=== PATIENT | female | born 1930 | race Caucasian/White ===

== ENCOUNTER 2016-06-26 11:50 | Inpatient (IN) | payer MEDICAID, MEDICARE, OTHER ==
[2016-06-26 12:00] VITALS: BMI 22.4
--- NOTE | 2016-06-26 12:42 | ED PDOC ---
Lower Extremity Pain/Injury Time Seen by Provider: 06/26/16 12:10 Chief Complaint (Nursing): Trauma Chief Complaint (Provider): Trauma History Per: Patient History/Exam Limitations: no limitations Onset/Duration Of Symptoms: Hrs Current Symptoms Are (Timing): Still Present Additional Complaint(s): 85 y/o female who presents to the emergency department via EMS with a complaint of bilateral hip and leg pain after falling on both knee while walking at home to drink her medications prior to arrival. Patient states her knees "gave out." Denies chest pain, shortness of breath, dizziness, weakness, back pain, or head injury. PMD: Dr. Analilia Awad MD Past Medical History Reviewed: Historical Data, Nursing Documentation, Vital Signs Vital Signs: Last Vital Signs Temp 98.7 F 06/26/16 11:59 Pulse 61 06/26/16 11:59 Resp 16 06/26/16 11:59 BP Pulse Ox 100 06/26/16 11:59 - Medical History PMH: Arthritis, Asthma, CHF, Deep Vein Thrombosis (rt leg), HTN, Hypercholesterolemia, Osteoporosis Denies: Chronic Kidney Disease - Surgical History Surgical History: Appendectomy, Cholecystectomy - Family History Family History: States: Unknown Family Hx - Social History Current smoker - smoking cessation education provided: No Alcohol: None Drugs: Denies - Immunization History Hx Tetanus Toxoid Vaccination: No Hx Influenza Vaccination: No Hx Pneumococcal Vaccination: No - Home Medications Home Medications: Ambulatory Orders Medication Instructions Recorded Bisoprolol [Zebeta] 5 mg PO DAILY #0 tab 06/13/15 Famotidine [Pepcid] 1 tab PO DAILY #0 tab 06/13/15 Rosuvastatin Calcium [Crestor] 10 mg PO HS #0 tab 06/13/15 Aspirin [Aspirin Chewable] 81 mg PO DAILY 03/08/16 Cozaar 25 mg PO DAILY 03/08/16 Furosemide [Lasix] 20 mg PO DAILY 03/08/16 cloNIDine [Catapres] 0.1 mg PO DAILY 03/08/16 Clonidine HCl [Kapvay] 0.1 mg PO WM 06/26/16 Escitalopram [Lexapro] 10 mg PO DAILY 06/26/16 Ferrous Sulfate [Feosol] 325 mg PO BID 06/26/16 Levetiracetam [Roweepra] 500 mg PO BID 06/26/16 Losartan [Cozaar] 25 mg PO DAILY 06/26/16 Oxybutynin [Oxybutynin Chloride] 5 mg PO BID 06/26/16 Rosuvastatin Calcium [Crestor] 10 mg PO DAILY 06/26/16 - Allergies Allergies/Adverse Reactions: Allergies Allergy/AdvReac Type Severity Reaction Status Date / Time No Known Allergies Allergy Verified 06/12/15 10:31 Review of Systems ROS Statement: Except As Marked, All Systems Reviewed And Found Negative Constitutional: Negative for: Weakness, Other (head injury) Cardiovascular: Negative for: Chest Pain Respiratory: Negative for: Shortness of Breath Musculoskeletal: Positive for: Leg Pain (Bilateral), Other (Bilateral hip pain) . Negative for: Back Pain Neurological: Negative for: Dizziness Physical Exam - Reviewed Nursing Documentation Reviewed: Yes Vital Signs Reviewed: Yes - Physical Exam Appears: Positive for: Non-toxic, No Acute Distress Head Exam: Positive for: ATRAUMATIC, NORMAL INSPECTION, NORMOCEPHALIC Skin: Positive for: Normal Color, Warm, Dry Neck: Positive for: Normal, Painless ROM, Supple Cardiovascular/Chest: Positive for: Regular Rate, Rhythm Respiratory: Positive for: Normal Breath Sounds Pulses-Dorsalis Pedis (L): 2+ Pulses-Dorsalis Pedis (R): 2+ Back: Positive for: Normal Inspection. Negative for: L CVA Tenderness, R CVA Tenderness Extremity: Positive for: Tenderness (Diffusely to the thigh, knee, and hips bilaterally. Ecchymosis the left knee and greater to the left anterior knee. ), Swelling (Mild right knee swelling), Other (2+ dorsalis pulses). Negative for: Normal ROM (limited ROM of motion bilaterally; passively and actively), Pedal Edema Neurologic/Psych: Positive for: Alert, Oriented - ECG O2 Sat by Pulse Oximetry: 100 (RA) Pulse Ox Interpretation: Normal - Radiology X-Ray: Read By Radiologist X-Ray Interpretation: Other (knee and femur: no acute) - Progress ED Course And Treament: 1457: Stable. AAOx3. Dr. Guillen wants pt. to get CT for further eval. Dr. Augustine to fu on imaging. Medical Decision Making Medical Decision Making: Time: 12:10 Initial impression: Leg and hip pain Initial plan: --Electrocardiogram Stat --EKG-ED (EDNURTX) Stat --Knee 4 or more Views BI (RAD) --Morphine 2 mg IM --Femur AP Lat BI --Hip BI with pelvis (RAD) --Revaluation Scribe Attestation: Documented by Effie Walker, acting as a scribe for Tremayne Bee MD. Provider Scribe Attestation: All medical record entries made by the Scribe were at my direction and personally dictated by me. I have reviewed the chart and agree that the record accurately reflects my personal performance of the history, physical exam, medical decision making, and the department course for this patient. I have also personally directed, reviewed, and agree with the discharge instructions and disposition. Disposition - Clinical Impression Clinical Impression: Pain of lower extremity - Patient ED Disposition Is Patient to be Admitted: Transfer of Care Counseled Patient/Family Regarding: Studies Performed, Diagnosis - Disposition Disposition: Transfer of Care Disposition Time: 14:58 Condition: STABLE Patient Signed Over To: Anjelica Augustine
--- NOTE | 2016-06-26 14:04 | RAD ---
Bilateral knees History: Fall. Comparison: None. Technique: Two views of both knees. Findings: No definite fracture. Degenerative changes left greater than right. Medial compartment joint space narrowing involving the left knee. Impression: No definite fracture. Degenerative changes left greater than right.
--- NOTE | 2016-06-26 14:06 | RAD ---
Bilateral femur History: Fall. Findings: No acute fracture. Impression: No definite fracture. Possible old fracture deformity of the right pubic ramus.
--- NOTE | 2016-06-26 15:04 | ED PDOC ---
- Laboratory Results Result Diagrams: 06/26/16 16:00 06/26/16 16:00 - ECG O2 Sat by Pulse Oximetry: 100 (RA) Pulse Ox Interpretation: Normal Medical Decision Making Medical Decision Making: Time: 15:00 --Patient is pending hip/pelvis x-ray, reassessment, and final disposition. Accession No. : [id number] Patient Name / ID : APRIL BEARD / [id number] Exam Date : 06/26/2016 13:18:23 ( Approved ) Study Comment : Sex / Age : F / 85Y Creator : Adriana Guillen MD Dictator : Adriana Guillen MD Racking Technician : Online Content Developer : Adriana Guillen MD Approver2 : Report Date : 06/26/2016 15:03:59 My Comment : Pelvis and both hips History: Fall. Comparison: CT from 01/23/2014. Findings: No apparent fracture. Old fracture of the right pubic ramus. Sclerotic density involving the left ischemic again seen. Vascular calcifications. Moderate distal colonic/rectal stool burden. Impression: No apparent fracture on the given images. Please note that this is a suboptimally positioned radiograph, subtle fractures can be missed under such suboptimal positioning. If clinical suspicion of fracture persists, CT of the pelvis should be obtained. Discussed with Dr. Bee at approximately 1:30 p.m. on 06/26/2016. Accession No. : [id number] Patient Name / ID : APRIL BEARD / [id number] Exam Date : 06/26/2016 13:22:22 ( Approved ) Study Comment : Sex / Age : F / 85Y Creator : Adriana Guillen MD Dictator : Adriana Guillen MD Racking Technician : Online Content Developer : Adriana Guillen MD Approver2 : Report Date : 06/26/2016 14:04:26 My Comment : Bilateral femur History: Fall. Findings: No acute fracture. Impression: No definite fracture. Possible old fracture deformity of the right pubic ramus. Accession No. : [id number] Patient Name / ID : APRIL BEARD / [id number] Exam Date : 06/26/2016 13:26:27 ( Approved ) Study Comment : Sex / Age : 5Y Creator : Adriana Guillen MD Dictator : Adriana Guillen MD Racking Technician : Online Content Developer : Adriana Guillen MD Approver2 : Report Date : 06/26/2016 14:02:39 My Comment : Bilateral knees History: Fall. Comparison: None. Technique: Two views of both knees. Findings: No definite fracture. Degenerative changes left greater than right. Medial compartment joint space narrowing involving the left knee. Impression: No definite fracture. Degenerative changes left greater than right. Accession No. : [id number] Patient Name / ID : APRIL BEARD / [id number] Exam Date : 06/26/2016 15:14:48 ( Approved ) Study Comment : Sex / Age : Creator : Adriana Guillen MD Dictator : Adriana Guillen MD Racking Technician : Online Content Developer : Adriana Guillen MD Approver2 : Report Date : 06/26/2016 16:06:07 My Comment : CT pelvis without intravenous contrast History: Fall. Evaluate for fracture. Comparison: Comparison made to CT from 01/23/2014. Technique: CT of the pelvis was obtained. Coronal and sagittal reformatted images were obtained. This CT was performed using one or more of the following dose reduction techniques: Automated exposure control, adjustment of the mA and/ or KV according to patient size, and/or use of iterative reconstruction technique. Radiation dose: 434.68 mGy-cm Findings: No displaced fracture identified. Old fracture involving the right pubic ramus again seen. Sclerotic density in the left HTN, stable. Extensive degenerative changes of lower lumbar spine. Mild anterolisthesis of L5 over S1. Intervertebral disc space narrowing and vacuum disc phenomenon at L5-S1. Extensive vascular calcifications. Visualized bowel possible fecal impaction and rectal wall thickening. Segmental thickening of the visualized portion of the ascending colon also noted. The bladder appears distended. No bladder calculus. Extensive atherosclerotic calcification involving both common femoral arteries left greater than right. Mild soft tissue stranding in the posterior aspect. Impression: No acute fracture identified. Short segment wall thickening (incompletely imaged) involving the ascending colon. Possible proctitis with fecal impaction. Time: 16:00 --Patient was reevaluated and still has persistent bilateral hip pain. Limited ability to even flex at the hip secondary to the pain. She is in too much pain to ambulate. Patient's findings were discussed with her and the family. Time: 16:50 --Spoke to Dr. Awad and patient is going to be admitted to [facility] for intractable hip pain and inability to ambulate. Accession No. : [id number] Patient Name / ID : APRIL BEARD / [id number] Exam Date : 06/26/2016 16:43:48 ( Approved ) Study Comment : Sex / Age : F / 85Y Creator : Adriana Guillen MD Dictator : Adriana Guillen MD Racking Technician : Online Content Developer : Adriana Guillen MD Approver2 : Report Date : 06/26/2016 16:48:43 My Comment : HISTORY: weakness COMPARISON: 05/28/2015 FINDINGS: LUNGS: Opacity inferior to the right hilum has remained essentially unchanged. PLEURA: No significant pleural effusion identified, no pneumothorax apparent.Biapical pleural parenchymal thickening noted. CARDIOVASCULAR: Mildly enlarged heart. OSSEOUS STRUCTURES: The osseous structures demonstrate degenerative changes. VISUALIZED UPPER ABDOMEN: Upper abdomen is suboptimally evaluated. OTHER FINDINGS: None. IMPRESSION: Right infrahilar opacity has remained essentially unchanged since 05/28/2015. Disposition Counseled Patient/Family Regarding: Studies Performed, Diagnosis - Clinical Impression Clinical Impression: Intractable pain, Contusion of knee, Inability to ambulate due to multiple joints - POA Present On Arrival: Falls Or Trauma - Disposition Disposition: Admitted as In-Patient Disposition Time: 16:00 Condition: SERIOUS
--- NOTE | 2016-06-26 16:07 | CT ---
CT pelvis without intravenous contrast History: Fall. Evaluate for fracture. Comparison: Comparison made to CT from 01/23/2014. Technique: CT of the pelvis was obtained. Coronal and sagittal reformatted images were obtained. This CT was performed using one or more of the following dose reduction techniques: Automated exposure control, adjustment of the mA and/or KV according to patient size, and/or use of iterative reconstruction technique. Radiation dose: 434.68 mGy-cm Findings: No displaced fracture identified. Old fracture involving the right pubic ramus again seen. Sclerotic density in the left HTN, stable. Extensive degenerative changes of lower lumbar spine. Mild anterolisthesis of L5 over S1. Intervertebral disc space narrowing and vacuum disc phenomenon at L5-S1. Extensive vascular calcifications. Visualized bowel possible fecal impaction and rectal wall thickening. Segmental thickening of the visualized portion of the ascending colon also noted. The bladder appears distended. No bladder calculus. Extensive atherosclerotic calcification involving both common femoral arteries left greater than right. Mild soft tissue stranding in the posterior aspect. Impression: No acute fracture identified. Short segment wall thickening (incompletely imaged) involving the ascending colon. Possible proctitis with fecal impaction.
[2016-06-26 16:44] LABS: BASO % 0.3 % (0.0-2.0); EOS % 0.1 % (0.0-4.0); LYMPH # 1.1 K/uL (1.0-4.3); MEAN CELL VOLUME 92.3 fl (81.0-99.0); MEAN CORPUSCULAR HEMOGLOBIN 31.3 pg (27.0-31.0); MEAN CORPUSCULAR HGB CONC 33.9 g/dL (33.0-37.0); MEAN PLATELET VOLUME 9.7 fl (7.2-11.7); MONO # 0.6 K/uL (0.0-0.8); MONO % 8.5 % (0.0-10.0); NEUT # 5.9 K/uL (1.8-7.0); NEUT % 77.1 % (50.0-75.0); NRBC % 0.1 % (0.0-0.0); RED CELL DISTRIBUTION WIDTH 13.4 % (11.5-14.5); WHITE BLOOD COUNT 7.6 K/uL (4.8-10.8)
--- NOTE | 2016-06-26 16:50 | RAD ---
HISTORY: weakness COMPARISON: 05/28/2015 FINDINGS: LUNGS: Opacity inferior to the right hilum has remained essentially unchanged. PLEURA: No significant pleural effusion identified, no pneumothorax apparent.Biapical pleural parenchymal thickening noted. CARDIOVASCULAR: Mildly enlarged heart. OSSEOUS STRUCTURES: The osseous structures demonstrate degenerative changes. VISUALIZED UPPER ABDOMEN: Upper abdomen is suboptimally evaluated. OTHER FINDINGS: None. IMPRESSION: Right infrahilar opacity has remained essentially unchanged since 05/28/2015.
[2016-06-26 17:01] LABS: ALB/GLOB RATIO 1.4 (1.0-2.1); BILIRUBIN,TOTAL 1.6 mg/dl (0.2-1.3); CALCIUM 11.9 mg/dL (8.4-10.2); MAGNESIUM 2.1 MG/DL (1.6-2.3); PHOSPHOROUS 1.1 mg/dl (2.5-4.5); POTASSIUM 4.5 MMOL/L (3.6-5.0)
[2016-06-26] MEDS: Sodium Chloride 0.45% 1,000 ML IV SCH (18:30)
[2016-06-27 07:18] LABS: HEMATOCRIT 39.7 % (34.0-47.0); MEAN CELL VOLUME 92.8 fl (81.0-99.0); MEAN CORPUSCULAR HEMOGLOBIN 31.2 pg (27.0-31.0); MEAN CORPUSCULAR HGB CONC 33.6 g/dL (33.0-37.0); RED CELL DISTRIBUTION WIDTH 13.4 % (11.5-14.5); WHITE BLOOD COUNT 5.3 K/uL (4.8-10.8)
[2016-06-27 07:30] LABS: ALB/GLOB RATIO 1.3 (1.0-2.1); BILIRUBIN,TOTAL 1.4 mg/dl (0.2-1.3); CALCIUM 10.9 mg/dL (8.4-10.2); POTASSIUM 3.5 MMOL/L (3.6-5.0); TOTAL PROTEIN 6.1 G/DL (6.3-8.2)
[2016-06-27] MEDS: Sodium Chloride 0.45% 1,000 ML IV SCH (08:11)
[2016-06-27] MEDS ORDERED: CLONIDINE HCL 0.1 MG PO SCH (09:00)
[2016-06-27 11:43] LABS: RBC URINE < 1 /hpf (0-3); URINE BILIRUBIN NEGATIVE (NEGATIVE); URINE BLOOD NEGATIVE (NEGATIVE); URINE COLOR YELLOW (YELLOW); URINE GLUCOSE (UA) NEG (Normal); URINE KETONE TRACE mg/dL (NEGATIVE); URINE LEUKOCYTE ESTERASE NEG Leu/uL (Negative); URINE PROTEIN NEGATIVE (NEGATIVE); URINE UROBILINOGEN 0.2-1.0 mg/dL (0.2-1.0); WBC URINE < 1 /hpf (0-5)
[2016-06-27] MEDS ORDERED: Potassium Chloride 10 mEq ER Tab PO ONE (17:00)
[2016-06-27] MEDS ORDERED: Potassium Chloride 20 mEq ER Tab PO ONE (17:03)
--- NOTE | 2016-06-27 20:24 | HP ---
HISTORY OF PRESENT ILLNESS: This is an 85-year-old female with history of multiple medical problems including hypertension, degenerative spine disease, was brought to Emergency Room after a fa ll. The patient stated that she fell on her way to the kitchen in the house and she alerted the ____ _ that called the police and the ambulance. The patient was brought to Emergency Room for evaluation where she was found to have contusion of both of her thighs and knees. The patient was not able to ambulate. Subsequently, the patient was admitted for further management. The patient does not recal l any dizziness or palpitations or any loss of consciousness associated with this fall. The patient had previous fall also last year. REVIEW OF SYSTEMS: Other review of systems is negative. ALLERGIES: No known allergy. HOME MEDICATIONS: Include ferrous sulfate 325 mg twice a day, Lexapro 10 mg daily, Keppra 500 mg twi ce a day, Crestor 10 mg daily, clonidine 0.1 mg Monday and Monday and Monday, furosemide 20 mg as needed, Pepcid 20 mg daily, Cozaar 25 mg daily, bisoprolol 5 mg daily. SOCIAL HISTORY: No history of smoking, ETOH or substance abuse. FAMILY HISTORY: Noncontributory. PHYSICAL EXAMINATION: GENERAL: The patient is in bed, is in mild distress due to pain in both lower extremities. VITAL SIGNS: Blood pressure 110/50, temperature 97.7, respiratory rate 20, and pulse 75. HEENT: Pupils equal, reactive to light. Normal-appearing mucosa of the conjunctivae, oropharyngeal and nasal membrane mucosa. NECK: Supple, no JVD, no carotid bruit, no lymph node, no thyromegaly. CHEST AND LUNGS: Bilateral symmetrical expansion. Good air exchange. No rales. No rhonchi. CARDIOVASCULAR: PMI not localized. S1, S2. No additional sounds. ABDOMEN: Normoactive bowel sounds, no tenderness, no organomegaly, no masses. EXTREMITIES: No cyanosis, no clubbing, no edema, but there is decreased range of motion of both knee s and hips. CENTRAL NERVOUS SYSTEM: Alert, awake, oriented x 2. No neurological deficits could be appreciated. ASSESSMENT: 1. Fall with severe contusion of both thighs and knees. 2. Hypertension. 3. 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 4. Anxiety/depression, currently on Lexapro. PLAN: We will start physical therapy, pain management and will order a CAT scan of the pelvis to rul e out any fracture. [facility] Yamel Awad MD cc: 167 TT: 06/27/2016 20:23:48 mn
[2016-06-28] MEDS ORDERED: CLONIDINE HCL 0.1 MG PO SCH (09:00)
[2016-06-28] MEDS ORDERED: Enoxaparin 40 mg Syringe SC SCH (09:00)
--- NOTE | 2016-06-28 14:42 | RAD ---
PROCEDURE: Radiographs of the Left Shoulder HISTORY: s/p fall, c/o pain COMPARISON: No prior. FINDINGS: BONES: There is no acute displaced fracture or bone destruction. Bone alignment is normal. There is diffuse bone demineralization. JOINTS: There is moderate degenerative acromioclavicular joint. There is mild degenerative osteoarthrosis in the glenohumeral joint SOFT TISSUES: Normal. OTHER FINDINGS: None. IMPRESSION: No acute displaced fracture or dislocation
--- NOTE | 2016-06-28 22:32 | PN ---
DATE: 06/28/2016 SUBJECTIVE: The patient is seen today 06/28/2016. She is still having pain in both lower extremitie s left shoulder with inability to abduct the left shoulder. PHYSICAL EXAMINATION: VITAL SIGNS: Blood pressure is 151/64, temperature 98.8, respiratory rate 20, pulse is 90. HEENT: Pupils equal, reactive to light. Normal-appearing mucosa of the conjunctivae, oropharyngeal and nasal membrane mucosa. NECK: Supple, no JVD, no carotid bruit, no lymph node, no thyromegaly. CHEST AND LUNGS: Bilateral symmetrical expansion, good air exchange, no rales, no rhonchi. CARDIOVASCULAR: PMI not localized. S1, S2. ABDOMEN: Normoactive bowel sounds, no tenderness, no organomegaly, no masses. EXTREMITIES: . CENTRAL NERVOUS SYSTEM: Alert, awake, oriented x 2, moves all extremities equally. ASSESSMENT: 1. Fall which is slightly mechanical with bilateral thigh pain, as well as left shoulder pain with d ecrease range of motion. 2. Hypertension. 3. Osteoarthritis. 4. Dementia. PLAN: Continue physical therapy and pain management, DVT prophylaxis. Analilia Awad MD cc: 167 TT: 06/28/2016 22:32:02 Confirmation # [id number] Dictation # [id number] mn
[2016-06-29 02:15] VITALS: RESP 18
[2016-06-29 16:30] VITALS: BP 123/63; PULSE 57; TEMP 98.5; O2SAT 97
--- NOTE | 2016-06-30 10:24 | DS ---
REASON FOR ADMISSION: This is an 85-year-old female with history of multiple medical proble ms after a fall, with multiple contusions on the thighs and the chest wall. COURSE OF HOSPITALIZATION: The patient was admitted to medical floor and she was started on pain man agement and physical therapy. The patient did not have any neurological deficit to support any acute neurological event. The patient was responding well, and pain was controlled and she was able to wa lk with assistance, and the patient was discharged to subacute rehabilitation at [facility]. FINAL DIAGNOSES: 1. Fall with multiple contusions in the chest wall and both lower extremities. 2. Hypertension. 3. Dementia. 4. Degenerative spine disease. Analilia Awad MD cc: 167 TT: 06/30/2016 10:23:46 jn
== END 2016-06-29 19:45 | DRG 605 ==
LOC: H.ER 11:50 → H.ERHOLD 16:35 → H.MEDSURG1 18:13
PROVIDERS: ADMIT Internal Medicine; ATTEND Internal Medicine
DX: S20.219A Contusion of unspecified front wall of thorax, initial encounter (principal); I11.0 Hypertensive heart disease with heart failure; F03.90 Unspecified dementia, unspecified severity, without behavioral disturbance, psychotic disturbance, mood disturbance, and anxiety; I50.9 Heart failure, unspecified; W18.30XA Fall on same level, unspecified, initial encounter; F32.9 Major depressive disorder, single episode, unspecified; F41.9 Anxiety disorder, unspecified; S70.11XA Contusion of right thigh, initial encounter; S70.12XA Contusion of left thigh, initial encounter; S80.02XA Contusion of left knee, initial encounter; S80.01XA Contusion of right knee, initial encounter; Y93.9 Activity, unspecified; Y92.009 Unspecified place in unspecified non-institutional (private) residence as the place of occurrence of the external cause; M25.512 Pain in left shoulder; M19.90 Unspecified osteoarthritis, unspecified site; J45.909 Unspecified asthma, uncomplicated; E78.00 Pure hypercholesterolemia, unspecified; M81.0 Age-related osteoporosis without current pathological fracture; Z86.718 Personal history of other venous thrombosis and embolism

== ENCOUNTER 2016-11-08 12:43 | Inpatient (IN) | payer MEDICARE, MEDICAID ==
[2016-11-08 12:47] VITALS: O2SAT 98
--- NOTE | 2016-11-08 13:00 | ED PDOC ---
HPI: General Adult Time Seen by Provider: 11/08/16 12:59 Chief Complaint (Nursing): Weakness/Neurological Deficit Chief Complaint (Provider): weakness, agitated History Per: Patient, EMS, Other (caretakers) Additional Complaint(s): 85-year-old female presents to emergency department for evaluation of generalized weakness, confusion, agitiation and altered mental status that started this morning as per caretakers. Caretakers state patient woke up today agitated and confused. No associated fever, chills, nausea, vomiting. Upon arrival patient is asking for her grandson who lives in [facility]. Patient denies any chest pain, shortness of breath or dyspnea on exertion upon arrival. She denies any headache but has mild dizziness with no vision changes. Past Medical History Reviewed: Historical Data Vital Signs: Last Vital Signs Temp 97 F L 11/08/16 12:44 Pulse 67 11/08/16 13:19 Resp 18 11/08/16 13:19 BP 145/90 11/08/16 13:19 Pulse Ox 98 11/08/16 15:10 - Medical History PMH: Arthritis, Asthma, CHF, Deep Vein Thrombosis (rt leg), HTN, Hypercholesterolemia, Hyperlipidemia, Osteoporosis, Chronic Kidney Disease, Seizures - Surgical History Surgical History: Appendectomy, Cholecystectomy - Family History Family History: States: No Known Family Hx - Living Arrangements Living Arrangements: With Family - Social History Current smoker - smoking cessation education provided: No Alcohol: None Drugs: Denies - Home Medications Home Medications: Ambulatory Orders Medication Instructions Recorded Aspirin [Ecotrin] 81 mg PO DAILY 11/08/16 Bisoprolol [Zebeta] 2.5 mg PO DAILY 11/08/16 Cinacalcet [Sensipar] 60 mg PO DAILY 11/08/16 Escitalopram [Lexapro] 10 mg PO DAILY 11/08/16 Famotidine [Pepcid] 20 mg PO DAILY 11/08/16 Ferrous Sulfate [Ferosul] 325 mg PO BID 11/08/16 Losartan [Cozaar] 50 mg PO DAILY 11/08/16 Oxybutynin [Ditropan Tab] 5 mg PO DAILY 11/08/16 Rosuvastatin Calcium [Crestor] 10 mg PO DAILY 11/08/16 hydrALAZINE [Apresoline] 50 mg PO Q8H 11/08/16 levETIRAcetam [Keppra] 500 mg PO BID 11/08/16 - Allergies Allergies/Adverse Reactions: Allergies Allergy/AdvReac Type Severity Reaction Status Date / Time No Known Allergies Allergy Verified 10/12/16 14:46 Review of Systems ROS Statement: Except As Marked, All Systems Reviewed And Found Negative Constitutional: Positive for: Weakness. Negative for: Fever, Chills Cardiovascular: Negative for: Chest Pain Respiratory: Negative for: Shortness of Breath Gastrointestinal: Negative for: Nausea, Vomiting, Abdominal Pain Neurological: Positive for: Weakness, Confusion, Altered Mental Status. Negative for: Change in Speech, Seizures, Headache, Dizziness Physical Exam - Reviewed Nursing Documentation Reviewed: Yes Vital Signs Reviewed: Yes - Physical Exam Appears: Positive for: Well, Non-toxic, No Acute Distress Skin: Negative for: Rash Eye Exam: Positive for: Normal appearance, EOMI, PERRL Cardiovascular/Chest: Positive for: Regular Rate, Rhythm Respiratory: Positive for: Normal Breath Sounds Gastrointestinal/Abdominal: Positive for: Soft. Negative for: Tenderness, Distended, Guarding, Rebound Extremity: Positive for: Normal ROM. Negative for: Pedal Edema, Deformity Neurologic/Psych: Positive for: Alert, machine staker II-XII (grossly intact), Oriented, Mood/Affect (anxious, paranoid). Negative for: Motor/Sensory Deficits, Aphasia , Facial Droop - Laboratory Results Result Diagrams: 11/08/16 13:21 11/08/16 13:21 - ECG Interpretation Of ECG: NSR 71 bpm, LBBB unchanged from previous EKG, reviewed by PA and ED attending. O2 Sat by Pulse Oximetry: 98 Pulse Ox Interpretation: Normal - Other Rad portable chest X-Ray: Interpreted by Me, Viewed By Me X-Ray Interpretation: no acute finding, no acute interval change Head CT X-Ray: Read By Radiologist X-Ray Interpretation: see below Medical Decision Making Medical Decision Makin85 year old with generalized weakness and altered mental status. No acute neuro deficits noted upon arrival. Previous records reviewed. Patient has similar episode of AMS on 10/12/16 and was admitted at that time. Plan: CT head CXR EKG CBC CMP Trop UA IVF CT head: IMPRESSION: No acute intracranial abnormality. Mild chronic microangiopathic changes and mild age-related global parenchymal volume loss. Call placed to PMD Dr. Awad. He is very familiar with patient. Patient was admitted medically for similar symptoms 1 month ago at [facility] and had negative workup at that time. As per Dr. Awad, he would like patient to be evaluated for geropsychiatric admission. Case was discussed with crisis counselor, patient is medically stable for psychiatric evaluation at this time. 3:30 pm: As per crisis counselor and psychiatrist warehouse insulation worker, Dr. Blunt, patient does meet criteria for avi-psych admission. Patient agrees and signed herself in. Patient is medically stable for psychiatric admission. Disposition - Clinical Impression Clinical Impression: Dementia, Delusional disorder - Patient ED Disposition Is Patient to be Admitted: Yes - Disposition Disposition Time: 16:23 Condition: FAIR Forms: [employer] (Thai) - Pt Status Changed To: Hospital Disposition Of: Inpatient - Admit Certification Admit to Inpatient:: After my assessment, the patient will require hospitalization for at least two midnights. This is because of the severity of symptoms shown, intensity of services needed, and/or the medical risk in this patient being treated as an outpatient. - POA Present On Arrival: None Results - Lab Results Lab Results: 11/08/16 11/08/16 11/08/16 13:55 13:21 13:21 WBC 3.5 L RBC 4.36 Hgb 13.4 Hct 40.8 MCV 93.5 MCH 30.7 MCHC 32.9 L RDW 12.9 Plt Count 154 MPV 8.3 Neut % (Auto) 47.6 L Lymph % (Auto) 40.2 H Semin[place] % (Auto) 9.4 Eos % (Auto) 1.7 Baso % (Auto) 1.1 Neut # 1.7 L Lymph # 1.4 [place]in[place] # 0.3 Eos # 0.1 Baso # 0.0 Sodium 135 Potassium 4.3 Chloride 103 Carbon Dioxide 22 Anion Gap 15 BUN 18 H Creatinine 1.1 Est GFR ( Amer) 57 Est GFR (Non-Af Amer) 47 Random Glucose 96 Calcium 8.9 Total Bilirubin 0.7 AST 27 ALT 41 Alkaline Phosphatase 73 Troponin I 0.0120 Total Protein 6.3 Albumin 3.7 Globulin 2.6 Albumin/Globulin Ratio 1.4 Urine Color Straw Urine Clarity Clear Urine pH 7.0 Ur Specific Kent 1.006 Urine Protein Negative Urine Glucose (UA) Neg Urine Ketones Negative Urine Blood Negative Urine Nitrate Negative Urine Bilirubin Negative Urine Urobilinogen 0.2-1.0 Ur Leukocyte Esterase Neg Urine RBC (Auto) 1 Urine Microscopic WBC < 1 Ur Squamous Epith Cells < 1 Calcium Oxalate Crystal Rare Urine Bacteria Rare
[2016-11-08] MEDS ORDERED: Sodium Chloride 0.9% 1,000 ML IV STA (13:07)
[2016-11-08 13:49] LABS: ALB/GLOB RATIO 1.4 (1.0-2.1); ALBUMIN 3.7 g/dL (3.5-5.0); BASO % 1.1 % (0.0-2.0); CALCIUM 8.9 mg/dL (8.4-10.2); EOS # 0.1 K/uL (0.0-0.7); EOS % 1.7 % (0.0-4.0); HEMOGLOBIN 13.4 g/dL (12.0-16.0); LYMPH # 1.4 K/uL (1.0-4.3); LYMPH % 40.2 % (20.0-40.0); MEAN CELL VOLUME 93.5 fl (81.0-99.0); MEAN CORPUSCULAR HEMOGLOBIN 30.7 pg (27.0-31.0); MEAN CORPUSCULAR HGB CONC 32.9 g/dL (33.0-37.0); MEAN PLATELET VOLUME 8.3 fl (7.2-11.7); MONO # 0.3 K/uL (0.0-0.8); MONO % 9.4 % (0.0-10.0); NEUT # 1.7 K/uL (1.8-7.0); NEUT % 47.6 % (50.0-75.0); NRBC % 0.3 % (0.0-0.0); RBC 4.36 Mil/uL (3.80-5.20); RED CELL DISTRIBUTION WIDTH 12.9 % (11.5-14.5); WHITE BLOOD COUNT 3.5 K/uL (4.8-10.8)
--- NOTE | 2016-11-08 13:58 | CT ---
PROCEDURE: CT HEAD WITHOUT CONTRAST. HISTORY: AMS, weakness COMPARISON: None available. TECHNIQUE: Axial computed tomography images were obtained through the head/brain without intravenous contrast. Radiation dose: Total exam DLP = 892.09 MGy-cm. This CT exam was performed using one or more of the following dose reduction techniques: Automated exposure control, adjustment of the mA and/or kV according to patient size, and/or use of iterative reconstruction technique. FINDINGS: HEMORRHAGE: No intracranial hemorrhage. BRAIN: There are mild chronic microangiopathic changes. There is no mass, mass effect or abnormal extra-axial fluid collection. There are coarse atherosclerotic calcifications in the cavernous carotid arteries. VENTRICLES: There is mild age-related global parenchymal volume loss and proportionate enlargement of the ventricles and cortical sulci. CALVARIUM: The skull base and calvarium are normal. PARANASAL SINUSES: Predominantly clear. MASTOID AIR CELLS: Predominantly clear. OTHER FINDINGS: None. IMPRESSION: No acute intracranial abnormality. Mild chronic microangiopathic changes and mild age-related global parenchymal volume loss.
[2016-11-08 14:01] LABS: TROPONIN I 0.012 ng/mL (0.00-0.120)
[2016-11-08 14:22] LABS: SQUAMOUS EPITHIAL < 1 /hpf (0-5); URINE BACTERIA RARE (<OCC); URINE BILIRUBIN NEGATIVE (NEGATIVE); URINE BLOOD NEGATIVE (NEGATIVE); URINE CALCIUM OXALATE CRYSTALS RARE /hpf (<OCC); URINE CLARITY CLEAR (Clear); URINE COLOR STRAW (YELLOW); URINE GLUCOSE (UA) NEG (Normal); URINE LEUKOCYTE ESTERASE NEG Leu/uL (Negative); URINE NITRATE NEGATIVE (NEGATIVE); URINE PROTEIN NEGATIVE (NEGATIVE); URINE UROBILINOGEN 0.2-1.0 mg/dL (0.2-1.0)
--- NOTE | 2016-11-08 14:26 | RAD ---
HISTORY: clearance COMPARISON: 06/26/2016. FINDINGS: LUNGS: The lungs are clear. There is bibasilar subsegmental atelectasis. PLEURA: No significant pleural effusion identified, no pneumothorax apparent. CARDIOVASCULAR: The heart is normal in size. There is prominent central vasculature and mild pulmonary redistribution. OSSEOUS STRUCTURES: No significant abnormalities. VISUALIZED UPPER ABDOMEN: Normal. OTHER FINDINGS: There is chronic elevation of the right hemidiaphragm. IMPRESSION: No active pulmonary disease.
--- NOTE | 2016-11-08 15:50 | CARD ---
APPROVED REPORT EKG Measurement Heart [id number] <Conclusion> Sinus rhythm with marked sinus arrhythmia Left bundle branch block Abnormal ECG
[2016-11-08 18:16] VITALS: BMI 23.2
[2016-11-08] MEDS ORDERED: Alum-Mag Hydrox-Simethicone Susp (30 mL) PO PRN (18:17)
[2016-11-08] MEDS ORDERED: Magnesium Hydroxide Susp 30 ml UD PO PRN (18:17)
[2016-11-08] MEDS ORDERED: Bismuth Subsalicylate 262 mg/15 ml Sus (240 ml) PO PRN (18:17)
--- NOTE | 2016-11-08 19:23 | PCM.BM ---
<Bradley,Niurka - Last Filed: 11/09/16 08:35> - Diagnosis (1) Major depression Status: Acute Interventions: Medication management, Individual and group therapy, psychoeducation 11/09/16 08:36 <Vonnie Wells - Last Filed: 11/09/16 09:32> Treatment Plan Problems - Problems identified on initial assessmt Hopelessness/Helplessness Date Initiated: 11/08/16 Time Initiated: 18:00 Assessment reference: NA Status: Active Activity Intolerance Date Initiated: 11/08/16 Time Initiated: 18:00 Assessment reference: NA Status: Active Treatment assets and liabiliti Patient Assests: good support system, financial stabiity, cognitively intact Patient Liabilities: live alone, medical problems, language/speech - Milieu Protocol Maintain good personal hygiene: daily Encourage regular showers, every shift Remind patient to perform daily oral care, every shift Assist patient to perform ADL's Conduct patient checks and document Observation sheet: Q15 minutes Maintain personal safety: every shift Educate patient to report safety concerns to staff, every shift Monitor environment for contraband/sharps Medication safety: Monitor for expected outcome, potential side effects: every shift, Assess barriers to learning: every shift, Assess readiness for medication education: every shift <Hallie Landry - Last Filed: 11/09/16 10:55> Family Contact Family involvement: Famliy/SO not involved - Outside Agency [facility] - [employer] Services Care involvment: Information-sharing, Other Agency contact name: [facility] contact number: [phone] - Goals for Treatment Patient goals for treatment: "To get better." Discharge/Continuing Care - Education Needs Education Needs: Patient Medication, Patient Diagnosis/Disease Process, Patient Coping Skills, Patient Placement options, Patient Community resources, Patient Aftercare Safety Plan - Discharge Discharge Criteria: Tolerates medication w/o severe side effects, Normal sleep pattern, Ability to care for self, Reduction of target symptoms Discharge to:: Home, With Family, Other (Home Health Aide Services ([employer]) vs. [facility]) - Treatment Team Participation Patient/Family/SO Statement: 11/09/16 10:50 Pt seen and discussed in team meeting. Tx plan discussed. Pt's medications reviewed and pt not agreeable to medication adjustment/modification at this time. Pt reported she feels lonely at home and "just want to talk to people." Pt reported limited support system. [facility] discussed and pt refused. Pt reported she just wants to continue with [employer] services. Discussed with Family/SO: No (Limited family support) Was Patient/Family/SO present at Treatment Team Meeting: Yes
[2016-11-09 08:05] LABS: HEMOGLOBIN 13.2 g/dL (12.0-16.0); MEAN CELL VOLUME 94.3 fl (81.0-99.0); MEAN CORPUSCULAR HEMOGLOBIN 31.2 pg (27.0-31.0); MEAN CORPUSCULAR HGB CONC 33.1 g/dL (33.0-37.0); RBC 4.24 Mil/uL (3.80-5.20); WHITE BLOOD COUNT 3.8 K/uL (4.8-10.8)
[2016-11-09 08:25] LABS: ALB/GLOB RATIO 1.4 (1.0-2.1); ALBUMIN 3.3 g/dL (3.5-5.0); CALCIUM 8.6 mg/dL (8.4-10.2)
--- NOTE | 2016-11-09 08:35 | PCM.PSYCH ---
Initial Psychiatric Evaluation - Initial Psychiatric Evaluation Type of Admission: Voluntary Legal Status: Capacity Chief Complaint (in patient's own words): "I'm depressed." Patient's Reaction to Hospitalization: 85 y/o female referred by Dr. Awad for worsening depression, anxiety and changes in sleep/appetite. Collateral from curtain worker in ER: CW contacted patient 's granddaughter Emily Hubbard who stated that patient is lonely and her behavior had deteriorated since her son move to [facility] two years ago. Patient is accompanied by homemakers, Ms. Gavin and Edgar Heron. As per homemaker patient was recently hospitalized in the medical floor. Patient had been feeling very depressed. Pt. has an adopted grandaughter Emily who takes care of pt's medication and coordinates her services. PMH: Arthritis, DVT, hypertension, hyperlipidemia, head trauma s/p fall, seizure d/o Surgical History: Appendectomy, Hysterectomy, L knee PPHx: No prior psychiatric treatment or admission. Currently on Lexapro from her PMD. ALL: NKDA FHx: No known family h/o mental illness; Mother w/ HTN SHx: No drugs/etoh/cig. From [place]. 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 PCP: Dr. Awad Current Medications: Active Medications Generic Name Dose Route Start Last Admin Trade Name Freq PRN Reason Stop Dose Admin Acetaminophen 650 mg 11/08/16 18:17 Tylenol 325mg Tab PO Q4 PRN Pain, moderate (4-7) Al Hydrox/Mg Hydrox/Simethicone 30 ml 11/08/16 18:17 Maalox Plus 30 Ml PO Q4 PRN Dyspepsia Aspirin 81 mg 11/09/16 09:00 Ecotrin PO DAILY KRISTEN Atorvastatin Calcium 20 mg 11/09/16 09:00 Lipitor PO DAILY KRISTEN Bismuth Subsalicylate 524 mg 11/08/16 18:17 Pepto-Bismol PO Q4 PRN Diarrhea Bisoprolol Fumarate 2.5 mg 11/09/16 09:00 Zebeta PO DAILY KRISTEN Cinacalcet 60 mg 11/09/16 09:00 Sensipar PO DAILY KRISTEN Escitalopram Oxalate 10 mg 11/09/16 09:00 Lexapro PO DAILY KRISTEN Famotidine 20 mg 11/09/16 09:00 Pepcid PO DAILY KRISTEN Ferrous Sulfate 325 mg 11/09/16 09:00 Feosol PO BID [facility] Hydralazine HCl 50 mg 11/08/16 18:30 11/09/16 03:29 Apresoline PO 50 mg Q8H [facility] Administration Levetiracetam 500 mg 11/09/16 09:00 Keppra PO BID KRITSEN Lorazepam 0.5 mg 11/08/16 18:17 Ativan PO 11/22/16 18:18 HS PRN Insomnia Lorazepam 0.5 mg 11/08/16 18:17 Ativan PO 11/22/16 18:18 Q6 PRN Anixety/Agitation Losartan Potassium 50 mg 11/09/16 09:00 Cozaar PO DAILY [facility] Magnesium Hydroxide 30 ml 11/08/16 18:17 Milk Of Magnesia PO HS PRN Constipation Oxybutynin Chloride 5 mg 11/09/16 09:00 Ditropan Tab PO DAILY [facility] Past Psychiatric History - Past Psychiatric History Previous Treatment History: None Pertinent Medical Hx (Current Medical&Sleep Prob, Allergies): Allergies Allergy/AdvReac Type Severity Reaction Status Date / Time No Known Allergies Allergy Verified 10/12/16 14:46 Aspirin [Ecotrin] 81 mg PO DAILY 11/08/16 Bisoprolol [Zebeta] 2.5 mg PO DAILY 11/08/16 Cinacalcet [Sensipar] 60 mg PO DAILY 11/08/16 Escitalopram [Lexapro] 10 mg PO DAILY 11/08/16 Famotidine [Pepcid] 20 mg PO DAILY 11/08/16 Ferrous Sulfate [Ferosul] 325 mg PO BID 11/08/16 Losartan [Cozaar] 50 mg PO DAILY 11/08/16 Oxybutynin [Ditropan Tab] 5 mg PO DAILY 11/08/16 Rosuvastatin Calcium [Crestor] 10 mg PO DAILY 11/08/16 hydrALAZINE [Apresoline] 50 mg PO Q8H 11/08/16 levETIRAcetam [Keppra] 500 mg PO BID 11/08/16 Review of Systems - Psychiatric Psychiatric: Abnormal Sleep Pattern, Behavioral Changes, Change in Appetite, Depression Mental Status Examination - Personal Presentation Personal Presentation: Looks stated age - Affect Affect: Constricted - Motor Activity Motor Activity: Calm - Reliability in Providing Information Reliability in Providing Information: Fair - Speech Speech: Coherent - Mood Mood: Depressed - Formal Thought Process Formal Thought Process: No Impairment - Hallucinations/Delusions Additional comments: NO AH/VH/paranoia/delusions - Obsessions/Compulsions Obsessions: No Compulsions: No - Cognitive Functions Orientation: Person, Place, Situation, Time Sensorium: Alert Estimate of Intelligence: Average Judgement: Intact, as evidence by: Insight regarding need for hospitalization Memory: Recent intact, as evidence by: Ability to recall events of the day - Risk Risk: Diminished functioning - Strength & Assets Inventory Strength & Assets Inventory: Cooperative - Limitations Limitations: Living alone DSM 5 DX - DSM 5 DSM 5 Diagnosis: Major Depressive Disorder - Recommended/Plan of Treatment Treatment Recommendations and Plan of Treatment: MDD -Admit to geriatric psychiatry unit -Increase Lexapro to 15 mg PO Daily -Individual and group therapy -Medicine consult -Disposition planning Projected ELOS: 2-5 days Discharge Plan and Discharge Criteria: Discharge when psychiatrically stable - Smoking Cessation Smoking Cessation Initiated: No Reason for not providing: Not indicated
[2016-11-09 08:44] LABS: T4 8.3 ug/dl (5.5-11.0)
[2016-11-09 09:01] LABS: FERRITIN 91.5 ng/mL
[2016-11-09] MEDS: Cinacalcet 60 MG TAB PO SCH (09:22)
[2016-11-09 12:30] LABS: FOLATE 15.1 ng/mL
--- NOTE | 2016-11-10 03:55 | CON ---
DATE: 11/09/2016 ATTENDING PHYSICIAN: Analilia Awad MD LOCATION: The patient's room number 307, bed 1. REASON FOR THE CONSULTATION: Change in mental status. CHIEF COMPLAINT: The patient was brought in with history of generalized weakness, agitation, and confusion as per the traffic controller cable. From neurological point of view, I was called in to evaluate her for further management. HISTORY OF PRESENT ILLNESS: The patient is an 85-year-old right-handed female presenting with, as per the traffic controller cable, history of generalized weakness, confusion, agitation. At present, she denies any headache, visual changes or any speech problem, except her right knee pain. She denies any loss of consciousness, no involuntary movements. PAST MEDICAL HISTORY: Arthritis, asthma, CHF, deep vein thrombosis, hypertension, dyslipidemia, osteoporosis, chronic kidney disease and seizures. PERSONAL HISTORY: Denies smoking and alcohol use. PAST SURGICAL HISTORY: Appendectomy and cholecystectomy. MEDICATIONS: Aspirin, Zetia, Sensipar, Lexapro, Pepcid, Feosol, Cozaar, Ditropan, calcium, Apresoline, and Keppra. REVIEW OF SYSTEMS: A 12-point system had been reviewed. From neurologic point of view, neurological system shows change in mental status. PHYSICAL EXAMINATION: VITAL SIGNS: Blood pressure 122/57 with mean arterial pressure of 78, pulse rate 72 and regular, respiratory rate is 16, temperature 97.3 degrees Fahrenheit. NECK: Supple. No carotid bruit. HEART: Sounds regular with systolic murmur. EXTREMITIES: Stasis dermatitis with 1+ pitting edema. NEUROLOGICAL: MENTAL STATUS EXAMINATION: She is awake, alert and oriented to person and place. She does not know the year. She does not know the president name. She is able to spell her name in [place]. She follows one-step command with no problem; disturbances in right and left confusion. Naming intact, repetition is normal, comprehension is intact. No sign of hallucination. No sign of suicidal ideation. No sign of depression. MOTOR: On outstretched hand with eyes closed. Mild essential tremor. DEEP TENDON REFLEXES: Biceps, brachialis, and triceps 1+; both knees are absent; both ankles are absent; plantars are equivocal response. Her right leg is limited exam due to the right knee arthritis. DIAGNOSTIC WORKUP: CT of the brain, mild atrophy with small vessel disease without any acute pathology. BLOOD WORKUP: WBC 3.8, hemoglobin 13.2, hematocrit 39.9, platelet 153. Sodium 137, potassium 4.9, chloride 104, bicarbonate 25, GFR 52. Liver functions are normal. Triglyceride 60, cholesterol 135, HDL 63. B12 of 545, folate 15.1. TSH 3.36. Urinalysis normal. RPR nonreactive. CONCLUSION: 1. The patient has been presenting with episode of change in mental status, presenting with confusion, all related to her senile dementia of Alzheimer type versus vascular dementia or mixed type. 2. The current exam has also showed bilateral distal symmetric sensorimotor neuropathy. 3. History of seizures; however, she does not have seizures. However, she is on medication of Keppra that she continues at present. RECOMMENDATIONS: 1. Continue Keppra for now. 2. The patient can be benefited with cholinesterase inhibitors to improve as well as stabilize her mental status. 3. The patient should be benefited getting out of the bed and physical therapy. 4. Pain medicine appropriately given for right knee arthritis. Otherwise, no further intervention is needed from neurological point of view. Hunter Fletcher MD
[2016-11-10] MEDS: Cinacalcet 60 MG TAB PO SCH (08:55)
--- NOTE | 2016-11-10 09:37 | PCM.PYCHPN ---
Psychiatric Progress Note - Psychiatric Progress Note Patient seen today, length of contact: Patient evaluated, case discussed with team, chart reviewed, 35 min Patient Chief Complaint: "I'm okay." Problems Identified/Issues Discussed: Patient reports her mood is improving. She has bright affect and engages appropriately with staff. She was not agreeable to increasing the Lexapro, due to feeling that her current dosage is sufficient to treat her depression. + Improved appetite. Medication Change: Yes (Continue Lexapro 10 mg PO Daily) Medical Record Reviewed: Yes Mental Status Examination - Cognitive Function Orientation: Person, Place, Situation, Time Association: WNL - Mood Mood: Depressed - Affect Affect: Broad - Speech Speech: Appropriate - Formal Thought Process Formal Thought Process: No Impairment Psychotic Thoughts and Behaviors: NO AH/VH/paranoia/delusions - Suicidal Ideation Suicidal Ideation: No - Homicidal Ideation Homicidal Ideation: No Goal/Treatment Plan - Goal/Treatment Plan Need for Continued Stay: Severe depression anxiety Progress Toward Problem(s) and Goals/Treatment Plan: MDD; patient needs continued hospitalization for treatment and safety. -Psychology consult to evaluate cognitive function; patient has periods of confusion as per collateral history -Continue Lexapro 10 mg PO Daily -Individual and group therapy -Medicine consult -Disposition planning Estimated Date of D/C: 11/11/16 - Smoking Cessation Smoking Cessation Initiated: No Reason for not providing: Not indicated
--- NOTE | 2016-11-10 09:48 | CON ---
DATE: 11/09/2016 HISTORY OF PRESENT ILLNESS: She is an 85 years old female with history of multiple medical problems, was admitted to geropsychiatric floor and medical consultation was called for medical followup. The patient stated that on the day of admission, the patient was on her way to bathroom when she started to have an episode of forgetfulness and incoherence associated with anxiety. The patient had her homemaker with her at that time. Ambulance was called and the patient brought to emergency room for evaluation. The patient was medically cleared in the emergency room for geropsychiatric admission. The patient had similar episodes before, and it was thought to be possible seizure disorders followed by postictal state versus anxiety episodes. The patient has been on both Keppra and Lexapro. Other review of systems is negative. ALLERGIES: NO KNOWN ALLERGY. HOME MEDICATIONS: Oxybutynin 5 mg daily, losartan 50 mg daily, Pepcid 20 mg daily, Lexapro 10 mg daily, Keppra 500 mg twice a day, hydralazine 50 mg every 8 hours, Crestor 10 mg daily, Sensipar 60 mg daily, aspirin 81 mg daily, and bisoprolol 2.5 mg daily. PAST MEDICAL HISTORY: Hypertension, hypercalcemia, , possible seizure, and anxiety/depression. SOCIAL HISTORY: No history of smoking, EtOH or substance abuse. FAMILY HISTORY: Noncontributory. PHYSICAL EXAMINATION: GENERAL: The patient is on bed, comfortable at the time of this examination. VITAL SIGNS: Blood pressure 122/57, temperature 97.3, respiratory rate 20, and pulse 72. HEENT: Pupils are equal and reactive to light. Normal appearing mucosa of the conjunctivae, oropharynx, and nasal membrane mucosa. NECK: Supple. No JVD. No carotid bruit. No lymph node. No thyromegaly. CHEST AND LUNGS: Bilateral symmetrical expansion. Good air exchange. No rales. No rhonchi. CARDIOVASCULAR: PMI not localized. S1 and S2. No additional sounds. ABDOMEN: Normoactive bowel sounds. No tenderness. No organomegaly. No masses. EXTREMITIES: No cyanosis. No clubbing. No edema. CENTRAL NERVOUS SYSTEM: Alert, awake, and oriented x2. No neurological deficit could be appreciated. ASSESSMENT: Hypertension, primary hyperparathyroidism, hypercalcemia, osteoarthritis. PLAN: We will continue current medications. Neurology consult. Discussed with psychiatrist and public health social worker on the floor. Analilia Awad MD
--- NOTE | 2016-11-10 21:47 | PN ---
DATE: 11/10/2016 SUBJECTIVE: She is more alert and awake. PHYSICAL EXAMINATION VITAL SIGNS: Blood pressure is 159/67, temperature 97.5, respiratory rate 20, and pulse 59. HEENT: Pupils are equal and reactive to light. Normal appearing mucosa of the conjunctivae, oropharynx, and nasal membrane mucosa. NECK: Supple. No JVD. No carotid bruit. No lymph node. No thyromegaly. CHEST AND LUNGS: Bilateral symmetrical expansion. Good air exchange. No rales. No rhonchi. CARDIOVASCULAR SYSTEM: PMI not localized. S1 and S2. No additional sounds. ABDOMEN: Normoactive bowel sounds. No tenderness. No organomegaly. No masses. EXTREMITIES: No cyanosis. No clubbing. No edema. CENTRAL NERVOUS SYSTEM: Alert, awake, and oriented x2. No neurological deficit could be appreciated. ASSESSMENT: 1. Acute change of mental status. Differential diagnoses include seizure was postictal. 2. *------* episodes. PLAN: Follow neurology consult recommendations. Continue current medicines and follow psychiatric recommendations. Analilia Awad MD
[2016-11-11] MEDS: Cinacalcet 60 MG TAB PO SCH (08:33)
--- NOTE | 2016-11-11 11:29 | CP.PCM.CON ---
History of Present Illness - History of Present Illness History of Present Illness: Pt is an 85 year old female admitted to the geropsych unit and referred to the credit underwriter for evaluation. On the DRS, pt scored an overall score of 111. Pt scored within normal limits on Initiation tasks and Construction tasks. Pt's Attention, Conceptualization, and Memory skills all fell in the Borderline/ deficient Range. Overall 111 Attention 30 (32 =+ within normal limits) Conceptualization 27 (32=+ within normal limits) Memory 16 (18=+ within normal limits) Construction 5 Initiation 33 Recommendations Monitoring within the home regarding medication management, ADL completion, financial wellness coach Thank you for this referral Dr. Echevarria Past Patient History - Infectious Disease Hx of Infectious Diseases: None - Tetanus Immunizations Tetanus Immunization: Unknown - Past Medical History & Family History Past Medical History?: Yes - Past Social History Alcohol: None Drugs: Denies - CARDIAC Hx Cardiac Disorders: Yes Hx Congestive Heart Failure: Yes Hx Hypercholesterolemia: Yes Hx Hypertension: Yes - PULMONARY Hx Asthma: Yes - NEUROLOGICAL Hx Seizures: Yes - HEENT Other/Comment: +eyeglasses - RENAL Hx Chronic Kidney Disease: Yes - ENDOCRINE/METABOLIC Hx Endocrine Disorders: No - HEMATOLOGICAL/ONCOLOGICAL Hx Cancer: No Hx Human Immunodeficiency Virus (HIV): No Other/Comment: history of right leg DVT - INTEGUMENTARY Hx Dermatological Problems: No - MUSCULOSKELETAL/RHEUMATOLOGICAL Hx Arthritis: Yes Hx Falls: Yes Hx Osteoporosis: Yes - GASTROINTESTINAL Hx Gastrointestinal Disorders: No - GENITOURINARY/GYNECOLOGICAL Hx Sexually Transmitted Disorders: No - PSYCHIATRIC Hx Substance Use: No - SURGICAL HISTORY Hx Appendectomy: Yes Hx Cholecystectomy: Yes - ANESTHESIA Hx Anesthesia: Yes Hx Anesthesia Reactions: No Meds Allergies/Adverse Reactions: Allergies Allergy/AdvReac Type Severity Reaction Status Date / Time No Known Allergies Allergy Verified 10/12/16 14:46 - Medications Medications: Current Medications Aspirin (Ecotrin) 81 mg PO DAILY [facility] Last Admin: 11/11/16 08:35 Dose: 81 mg Atorvastatin Calcium (Lipitor) 20 mg PO DAILY [facility] Last Admin: 11/11/16 08:34 Dose: 20 mg Bisoprolol Fumarate (Zebeta) 2.5 mg PO DAILY [facility] Last Admin: 11/11/16 08:36 Dose: 2.5 mg Cinacalcet (Sensipar) 60 mg PO DAILY [facility] Last Admin: 11/11/16 08:33 Dose: 60 mg Donepezil HCl (Aricept) 5 mg PO HS [facility] Last Admin: 11/10/16 21:04 Dose: 5 mg Escitalopram Oxalate (Lexapro) 10 mg PO DAILY [facility] Last Admin: 11/11/16 08:33 Dose: 10 mg Famotidine (Pepcid) 20 mg PO DAILY [facility] Last Admin: 11/11/16 08:36 Dose: 20 mg Ferrous Sulfate (Feosol) 325 mg PO BID [facility] Last Admin: 11/11/16 08:34 Dose: 325 mg Hydralazine HCl (Apresoline) 50 mg PO Q8H [facility] Last Admin: 11/11/16 02:38 Dose: Not Given Levetiracetam (Keppra) 500 mg PO BID [facility] Last Admin: 11/11/16 08:33 Dose: 500 mg Losartan Potassium (Cozaar) 50 mg PO DAILY [facility] Last Admin: 11/11/16 08:35 Dose: 50 mg Oxybutynin Chloride (Ditropan Tab) 5 mg PO DAILY [facility] Last Admin: 11/11/16 08:35 Dose: 5 mg Results - Vital Signs Recent Vital Signs: Last Vital Signs Temp 98.1 F 11/11/16 05:55 Pulse 68 11/11/16 08:35 Resp 18 11/11/16 05:55 BP 187/86 H 11/11/16 08:35 Pulse Ox 98 11/08/16 17:41 - Labs Result Diagrams: 11/09/16 07:30 11/09/16 07:30
--- NOTE | 2016-11-11 12:30 | PCM.PYCHDC ---
Mental Status Examination - Mental Status Examination Orientation: Person, Place, Situation, Time Memory: Intact Mood: Neutral Affect: Broad Speech: Appropriate Association: WNL Formal Thought Process: No Impairment Description of patient's judgement and insight: Fair I/J Psychotic Thoughts and Behaviors: NO AH/VH/paranoia/delusions Suicidal Ideation: No Current Homicidal Ideation?: No Discharge Summary - Discharge Note Reason for Hospitalization: 85 y/o female referred by Dr. Awad for worsening depression, anxiety and changes in sleep/appetite. Collateral from cannery worker in ER: CW contacted patient 's granddaughter Emily Hubbard who stated that patient is lonely and her behavior had deteriorated since her son move to [facility] two years ago. Patient is accompanied by homemakers, Ms. Gavin and Ms. Shelby. As per homemaker patient was recently hospitalized in the medical floor. Patient had been feeling very depressed. Pt. has an adopted grandaughter Emily who takes care of pt's medication and coordinates her services. PMH: Arthritis, DVT, hypertension, hyperlipidemia, head trauma s/p fall, seizure d/o Surgical History: Appendectomy, Hysterectomy, L knee PPHx: No prior psychiatric treatment or admission. Currently on Lexapro from her PMD. ALL: NKDA FHx: No known family h/o mental illness; Mother w/ HTN SHx: No drugs/etoh/cig. From [place]. 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 PCP: Dr. Awad Consultations:: List each consultation separately and include: 1. Reason for request. 2. Findings. 3. Follow-up Consultations: Medicine consult- continue current medications Neurology consult- continue Keppra for seizures disorder Psychology consult- Pt is an 85 year old female admitted to the geropsych unit and referred to the underwriter solicitation director for evaluation. On the DRS, pt scored an overall score of 111. Pt scored within normal limits on Initiation tasks and Construction tasks. Pt's Attention, Conceptualization, and Memory skills all fell in the Borderline/deficient Range. Overall 111 Attention 30 (32 =+ within normal limits) Conceptualization 27 (32=+ within normal limits) Memory 16 (18=+ within normal limits) Construction 5 Initiation 33 Recommendations Monitoring within the home regarding medication management, ADL completion, nonprofit financial controller Summary of Hospital Course include:: 1. Description of specific treatment plan utilized for patients during their course of treatmen. 2. Summarize the time- course for resolution of acute symptoms and/or regressed behaviors. 3. Describe issues identified and worked on during hospitalization. 4. Describe medication utilized. 5. Describe medical problems identified and treated. 6. Reassessment of suicide risk Summary of Hospital Course: Patient admitted to the geropsychiatry unit. Individual and group therapy provided. Medicine, Neurology and Psychology consult appreciated. Patient refused to increase her Lexapro at this time. Patient reports improved mood and she is psychiatrically stable for discharge. - Diagnosis (1) Major depression Assessment and Plan: Medication management, Individual and group therapy, Psychoeducation Current Visit: Yes Status: Acute - Final Diagnosis (DSM 5) Condition upon Discharge: FAIR DSM 5: MDD; Dementia Disposition: HOME/ ROUTINE Follow-up Treatment Plan: MDD; Dementia; Patient psychiatrically stable for discharge -Continue Lexapro 10 mg PO Daily; recommend to increase to 15 mg PO Daily when patient is agreeable -Medicine, Psychology, Physical Therapy and Neurology consults appreciated -Discharge to home w/ AUTOMOBILE SEAT COVER INSTALLER -Case discussed with sruthi Diaz note - Smoking Cessation Smoking Cessation Medication prescribed: No Reason for not providing: Not indicated - Antipsychotic Medications Pt discharged on 2 or more routine antipsychotic medications: No
[2016-11-11 15:51] VITALS: PULSE 59; RESP 19; TEMP 97
[2016-11-11 17:30] VITALS: BP 136/56
--- NOTE | 2016-11-12 01:24 | PN ---
DATE: 11/11/2016 SUBJECTIVE: The patient is seen today on 11/11/2016. PHYSICAL EXAMINATION VITAL SIGNS: She is not in any cardiopulmonary distress. Blood pressure was 156/74, temperature 97, respiratory rate 19 and pulse 69, HEENT: Pupils are equal and reactive to light. Normal appearing mucosa of the conjunctivae, oropharynx, and nasal membrane mucosa. NECK: Supple. No JVD. No carotid bruit. No lymph node. No thyromegaly. CHEST AND LUNGS: Bilateral symmetrical expansion. Good air exchange. No rales. No rhonchi. CARDIOVASCULAR: PMI not localized. S1 and S2. No additional sounds. ABDOMEN: Normoactive bowel sounds. No tenderness. No organomegaly. No masses. EXTREMITIES: No cyanosis. No clubbing. No edema. CENTRAL NERVOUS SYSTEM: Alert, awake, and oriented x2. No neurological deficit could be appreciated. ASSESSMENT: Uncontrolled hypertension with change of mental status, likely could be generalized anxiety disorder versus postictal state. PLAN: Continue current medications including anti-seizure medicine and we will increase the Lexapro based on recommendation of the psychiatrist. Discussed the patient's care with her caregiver Emily over the phone that will take up the patient today from the hospital. Analilia Awad MD
== END 2016-11-11 18:04 | disposition home or self-care (01) | DRG 881 ==
LOC: H.ER 12:43 → H.ERHOLD 16:18 → H.STEP 17:58
PROVIDERS: ADMIT Psychiatry & Neurology Psychiatry; ATTEND Psychiatry & Neurology Psychiatry
PROC: GZHZZZZ Group Psychotherapy (ICD-10-PCS; principal; 2016-11-08)
DX: F32.9 Major depressive disorder, single episode, unspecified (principal); I13.0 Hypertensive heart and chronic kidney disease with heart failure and stage 1 through stage 4 chronic kidney disease, or unspecified chronic kidney disease; I50.9 Heart failure, unspecified; F03.90 Unspecified dementia, unspecified severity, without behavioral disturbance, psychotic disturbance, mood disturbance, and anxiety; G62.9 Polyneuropathy, unspecified; G40.909 Epilepsy, unspecified, not intractable, without status epilepticus; E21.0 Primary hyperparathyroidism; F41.9 Anxiety disorder, unspecified; E78.5 Hyperlipidemia, unspecified; E78.00 Pure hypercholesterolemia, unspecified; N18.9 Chronic kidney disease, unspecified; J45.909 Unspecified asthma, uncomplicated; M19.90 Unspecified osteoarthritis, unspecified site; M81.0 Age-related osteoporosis without current pathological fracture; Z86.718 Personal history of other venous thrombosis and embolism

== ENCOUNTER 2017-06-21 16:14 | Inpatient (IN) | payer MEDICARE, OTHER ==
[2017-06-21 16:14] VITALS: BMI 23.2
[2017-06-21] MEDS ORDERED: Albuterol-Ipratrop 3 mg / 0.5 (3 ml) UD INH STA (17:06)
--- NOTE | 2017-06-21 17:09 | ED PDOC ---
HPI: Abdomen Time Seen by Provider: 06/21/17 17:07 Chief Complaint (Nursing): Abdominal Pain Chief Complaint (Provider): fever/vomiting History Per: Patient (86 y/o female h/o Dementia/HTN/lower extremity edema sent to ED by Dr. Awad (pmd) for evaluation of cough/fever/vomiting noted today. Patient denies any chest pain/abdominal pain/dysuria. Has h/o ovarian cyst removal in past otherwise denies any abdominal surgeries.) Past Medical History Reviewed: Historical Data, Nursing Documentation, Vital Signs Vital Signs: Last Vital Signs Temp 98.7 F 06/21/17 18:54 Pulse 90 06/21/17 18:54 Resp 19 06/21/17 18:54 BP 145/57 L 06/21/17 18:54 Pulse Ox 95 06/21/17 19:02 - Medical History PMH: Arthritis, Asthma, CHF, Deep Vein Thrombosis (rt leg), HTN, Hypercholesterolemia, Hyperlipidemia, Osteoporosis, Chronic Kidney Disease, Seizures Denies: Diabetes, Hepatitis, HIV, Sexually Transmitted Disease - Surgical History Surgical History: Appendectomy, Cholecystectomy - Family History Family History: States: Unknown Family Hx - Immunization History Hx Tetanus Toxoid Vaccination: No Hx Influenza Vaccination: No Hx Pneumococcal Vaccination: No - Home Medications Home Medications: Ambulatory Orders Medication Instructions Recorded Aspirin [Ecotrin] 81 mg PO DAILY 11/08/16 Bisoprolol [Zebeta] 5 mg PO DAILY 11/08/16 Cinacalcet [Sensipar] 60 mg PO DAILY 11/08/16 Escitalopram [Lexapro] 5 mg PO TID 11/08/16 Famotidine [Pepcid] 20 mg PO DAILY 11/08/16 Ferrous Sulfate [Ferosul] 325 mg PO BID 11/08/16 Oxybutynin [Ditropan Tab] 5 mg PO DAILY 11/08/16 Rosuvastatin Calcium [Crestor] 10 mg PO DAILY 11/08/16 hydrALAZINE [Apresoline] 50 mg PO Q8H 11/08/16 levETIRAcetam [Keppra] 500 mg PO BID 11/08/16 Donepezil [Aricept] 5 mg PO HS tab 11/11/16 Cinacalcet [Sensipar] 60 mg PO DAILY 06/21/17 Furosemide [Lasix] 20 mg PO BID 06/21/17 Losartan Potassium 50 mg PO DAILY 06/21/17 Potassium Chloride [K-Dur 20] 20 meq PO 06/21/17 metOLazone [Zaroxolyn] 5 mg PO BID 06/21/17 - Allergies Allergies/Adverse Reactions: Allergies Allergy/AdvReac Type Severity Reaction Status Date / Time No Known Allergies Allergy Verified 06/21/17 16:19 Review of Systems ROS Statement: Except As Marked, All Systems Reviewed And Found Negative Constitutional: Positive for: Fever Respiratory: Positive for: Cough Physical Exam - Reviewed Nursing Documentation Reviewed: Yes Vital Signs Reviewed: Yes - Physical Exam Appears: Positive for: Well, Non-toxic, No Acute Distress Head Exam: Positive for: ATRAUMATIC, NORMAL INSPECTION, NORMOCEPHALIC Skin: Positive for: Normal Color, Warm, DRY Eye Exam: Positive for: EOMI, Normal appearance, PERRL ENT: Positive for: Normal ENT Inspection Neck: Positive for: Normal, Painless ROM Cardiovascular/Chest: Positive for: Regular Rate, Rhythm Respiratory: Positive for: Normal Breath Sounds, Rales (RLL) Gastrointestinal/Abdominal: Positive for: Normal Exam, Bowel Sounds, Soft Back: Positive for: Normal Inspection Extremity: Positive for: Normal ROM Neurologic/Psych: Positive for: Alert, Oriented - Laboratory Results Result Diagrams: 06/21/17 17:35 06/21/17 17:35 - ECG ECG Rhythm: Positive for: Sinus Rhythm (nsr 71 bpm; LBBB) O2 Sat by Pulse Oximetry: 95 - Progress ED Course And Treament: duoneb x 1 dose Magnesium sulfate 1 gm iv x 1 dose CXr: ? hazy infiltrate LLL Rocephin 1 gm iv x 1 dose Zithromax 500mg iv x 1 dose D/W DR. AWAD NS 75ML IV HOUR Disposition - Clinical Impression Clinical Impression: Pneumonia, Dehydration, Vomiting - Patient ED Disposition Is Patient to be Admitted: Yes - Disposition Disposition Time: 19:00 Condition: FAIR Forms: [facility] (Ukrainian) - Pt Status Changed To: Hospital Disposition Of: Observation
[2017-06-21] MEDS ORDERED: Albuterol-Ipratrop 3 mg / 0.5 (3 ml) UD ONE (17:30)
[2017-06-21 17:36] LABS: VENOUS BLOOD GAS BASE EXCESS 5.8 mmol/L (0.0-2.0); VENOUS BLOOD GAS PCO2 40 mmHg (40-60); VENOUS BLOOD GAS PO2 24 mm/Hg (30-55); VENOUS BLOOD PH 7.48 (7.32-7.43)
[2017-06-21 17:58] LABS: ALB/GLOB RATIO 1.4 (1.0-2.1); CALCIUM 9.6 mg/dL (8.4-10.2)
[2017-06-21 18:02] LABS: BASO % 0.9 % (0.0-2.0); EOS % 0.6 % (0.0-4.0); HEMOGLOBIN 13.1 g/dL (12.0-16.0); LYMPH # 0.4 K/uL (1.0-4.3); LYMPH % 15.3 % (20.0-40.0); MEAN CELL VOLUME 96.7 fl (81.0-99.0); MEAN CORPUSCULAR HEMOGLOBIN 32.8 pg (27.0-31.0); MEAN CORPUSCULAR HGB CONC 33.9 g/dL (33.0-37.0); MEAN PLATELET VOLUME 8.7 fl (7.2-11.7); MONO # 0.5 K/uL (0.0-0.8); MONO % 18.5 % (0.0-10.0); NEUT # 1.8 K/uL (1.8-7.0); NEUT % 64.7 % (50.0-75.0); NRBC % 0.2 % (0.0-0.0); RBC 3.98 Mil/uL (3.80-5.20); RED CELL DISTRIBUTION WIDTH 13.1 % (11.5-14.5); WHITE BLOOD COUNT 2.8 K/uL (4.8-10.8)
[2017-06-21 18:07] LABS: TROPONIN I 0.028 ng/mL (0.00-0.120)
[2017-06-21] MEDS ORDERED: cefTRIAXone (Rocephin) 1 gm Inj IVPB ONE (18:20)
[2017-06-21] MEDS ORDERED: Magnesium Sulfate 1 GM in Dextrose 5% In Water 100 ML IVPB ONE (18:30)
[2017-06-21] MEDS ORDERED: cefTRIAXone (Rocephin) 1 gm Inj ONE (18:37)
[2017-06-21] MEDS ORDERED: Magnesium Sulfate 2 gm/50 ml 0 GM/0 ML BAG ONE (18:37)
[2017-06-21] MEDS ORDERED: Azithromycin 500 MG in Sodium Chloride 0.9% 250 ML IVPB ONE (18:45)
[2017-06-21] MEDS ORDERED: Sodium Chloride 0.9% 500 ML IV ONE (19:02)
[2017-06-21] MEDS ORDERED: Sodium Chloride 0.9% 250 ML IV ONE (19:07)
[2017-06-21] MEDS ORDERED: Sodium Chloride 0.9% 1,000 ML IV STA ×2 (19:07→19:29)
[2017-06-21 20:51] LABS: SQUAMOUS EPITHIAL 5 /hpf (0-5); URINE BACTERIA RARE (<OCC); URINE BILIRUBIN NEGATIVE (NEGATIVE); URINE BLOOD NEGATIVE (NEGATIVE); URINE CLARITY SLIGHTY-CLOUDY (Clear); URINE COLOR YELLOW (YELLOW); URINE GLUCOSE (UA) NEG (Normal); URINE LEUKOCYTE ESTERASE NEG Leu/uL (Negative); URINE PROTEIN 100 mg/dL (NEGATIVE); URINE UROBILINOGEN 0.2-1.0 mg/dL (0.2-1.0)
[2017-06-22] MEDS ORDERED: Influenza Vaccine 18yr & older 0.5 ML/45 MCG SYR IM ONE (09:00)
[2017-06-22] MEDS: metOLazone 5 MG TAB PO SCH ×2 (09:57→21:52)
--- NOTE | 2017-06-22 09:57 | RAD ---
HISTORY: routine COMPARISON: 11/08/2016 FINDINGS: LUNGS: No active pulmonary disease. PLEURA: No significant pleural effusion identified, no pneumothorax apparent. CARDIOVASCULAR: Normal. OSSEOUS STRUCTURES: No significant abnormalities. VISUALIZED UPPER ABDOMEN: Normal. OTHER FINDINGS: None. IMPRESSION: No active disease.
[2017-06-22] MEDS: Potassium Chloride 20 mEq ER Tab PO SCH (10:00)
[2017-06-22] MEDS ORDERED: Glucagon Recombinant 1 mg Inj ONE (12:35)
[2017-06-22] MEDS ORDERED: Iohexol 240 (50 ml) ONE (12:36)
--- NOTE | 2017-06-22 14:25 | HP ---
HISTORY OF PRESENT ILLNESS: This is an 86-year-old female who is known to me who presented to the office on the day of admission with symptoms of frequent vomiting, fever, and generalized weakness. The patient was evaluated and found to be dehydrated. The patient was sent by EMS to Emergency Room where she was found to have temperature of 100.6 as well as uncontrolled hypertension and dehydration. The patient was admitted for further management. REVIEW OF SYSTEMS: Other review of systems is negative. ALLERGIES: NO KNOWN ALLERGIES. MEDICATIONS: As per MAR. PAST MEDICAL HISTORY: Hypertension, hypercalcemia, hypercholesterolemia, and osteoarthritis. SOCIAL HISTORY: No history of smoking, EtOH or substance abuse. FAMILY HISTORY: Noncontributory. PHYSICAL EXAMINATION: GENERAL: The patient is in bed, not in any cardiopulmonary distress at the time of this examination. VITAL SIGNS: Temperature 99.9, respiratory rate 18, pulse 77, and blood pressure 172/66. HEENT: Pupils equal, reactive to light. Normal appearing mucosa of the conjunctivae, oropharyngeal and nasal membrane mucosa. NECK: Supple. No JVD. No carotid bruit. No lymph nodes. No thyromegaly. CHEST AND LUNGS: Bilateral symmetrical expansion. Good air exchange. No rales, no rhonchi. CARDIOVASCULAR: PMI not localized. S1 and S2. No additional sounds. ABDOMEN: Normoactive bowel sounds. No tenderness. No organomegaly. No masses. EXTREMITIES: No cyanosis, no clubbing, no edema. CENTRAL NERVOUS SYSTEM: Alert, awake, and oriented x2. Moves all extremities equally. ASSESSMENT: 1. Dehydration and viral syndrome since the patient has fever, vomiting, generalized malaise, and leukopenia. 2. Hypertension. 3. Hyperparathyroidism. 4. Osteoarthritis. PLAN: We will continue IV fluids hydrating the patient's, give the patient Tamiflu. Continue Rocephin and azithromycin and resume the patient's home medications. Analilia Awad MD
--- NOTE | 2017-06-22 18:14 | CARD ---
APPROVED REPORT EKG Measurement Heart [id number] NC 132P34 [id number] <Conclusion> Normal sinus rhythm Left axis deviation Left bundle branch block Abnormal ECG
--- NOTE | 2017-06-22 18:39 | CARD ---
APPROVED REPORT EKG Measurement Heart [id number] 128P28 [id number] <Conclusion> Sinus rhythm with marked sinus arrhythmia Left axis deviation Left bundle branch block Abnormal ECG
[2017-06-22] MEDS: Azithromycin 500 MG in Sodium Chloride 0.9% 250 ML IVPB SCH (20:53)
[2017-06-23] MEDS: Potassium Chloride 20 mEq ER Tab PO SCH (09:34)
[2017-06-23] MEDS: metOLazone 5 MG TAB PO SCH ×2 (09:35→18:03)
--- NOTE | 2017-06-23 14:22 | PN ---
DATE: 06/23/2017 DAILY PROGRESS NOTE SUBJECTIVE: The patient is seen today on 06/23/2017. She is not in any cardiopulmonary distress today. OBJECTIVE: VITAL SIGNS: Blood pressure of 159/69, temperature of 97.6, respiratory rate of 20, and pulse of 59. HEENT: Pupils equal, reactive to light. Normal-appearing mucosa of the conjunctivae, oropharyngeal and nasal membrane mucosa. NECK: Supple. No JVD. No carotid bruit. No lymph nodes. No thyromegaly. CHEST AND LUNGS: Bilateral symmetrical expansion. ABDOMEN: Normoactive bowel sounds. No tenderness. No organomegaly. No masses. EXTREMITIES: No cyanosis, no clubbing, no edema. CENTRAL NERVOUS SYSTEM: Alert, awake, and oriented x2. No neurological deficit could be appreciated. ASSESSMENT: Pneumonia, dehydration, [id number] myocardial infarction, hyperthyroidism, and hypocalcemia. PLAN: Continue current management. Cardiology consult and follow recommendations. Continue current antibiotics. Analilia Awad MD
--- NOTE | 2017-06-23 14:34 | CARD ---
APPROVED REPORT EXAM: Two-dimensional and M-mode echocardiogram with Doppler and color Doppler. Other Information Quality : ExcellentRhythm : NSR INDICATION SD 2D DIMENSIONS IVSd1.97 (0.7-1.1cm)LVDd3.31 (3.9-5.9cm) LVOT Diameter1.80 (1.8-2.4cm)PWd1.19 (0.7-1.1cm) IVSs2.02 (0.8-1.2cm)LVDs2.52 (2.5-4.0cm) FS (%) 23.9 %PWs1.69 (0.8-1.2cm) LVEF (%)55.0 (>50%) M-Mode DIMENSIONS Left Atrium (MM)4.94 (2.5-4.0cm)IVSd1.29 (0.7-1.1cm) Aortic Root2.63 (2.2-3.7cm)LVDd4.32 (4.0-5.6cm) Aortic Cusp Exc.1.57 (1.5-2.0cm)PWd1.21 (0.7-1.1cm) IVSs1.88 cmFS (%) 45 % LVDs2.37 (2.0-3.8cm)PWs1.70 cm Mitral Valve MV E Jobgrekq91.6cm/sMV DECEL [id number] A Bzikppak46.8cm/s MV QSS10tbW/A ratio1.0MVA (PHT)3.21cm2 TDI Lateral E' Peak V8.56cm/sMedial E' Peak V5.62cm/sE/Lateral E'7.2 E/Medial E'11.0 Pulmonary Valve PV Peak Vvahqrfr93.4cm/s Tricuspid Valve TR Peak Neasshxx496jm/sRAP OPYCODWI72nqBrAC Peak Gr.55mmHg [id number] LEFT VENTRICLE The left ventricle is normal size. There is moderate concentric left ventricular hypertrophy. The left ventricular function is normal. The left ventricular ejection fraction is within the normal range. There is normal LV segmental wall motion. Transmitral Doppler flow pattern is Grade I-abnormal relaxation pattern. RIGHT VENTRICLE The right ventricle is moderately dilated. The right ventricle is mildly hypertrophied. The right ventricular systolic function is normal. ATRIA The left atrium is moderately dilated. The right atrium is moderately dilated. AORTIC VALVE The aortic valve is mildly sclerotic. No aortic regurgitation is present. There is no aortic valvular stenosis. MITRAL VALVE The mitral valve is moderately thickened. There is no mitral valve stenosis. Mitral regurgitation is trace. TRICUSPID VALVE The tricuspid valve is normal in structure. There is severe tricuspid regurgitation. There is severe pulmonary hypertension. PULMONIC VALVE The pulmonary valve is normal in structure. There is no pulmonic valvular regurgitation. GREAT VESSELS The aortic root is normal in size. The IVC is normal in size and collapses >50% with inspiration. PERICARDIAL EFFUSION The pericardium appears normal. <Conclusion> The left ventricle is normal size. There is moderate concentric left ventricular hypertrophy. The left ventricular function is normal. The left ventricular ejection fraction is within the normal range. There is normal LV segmental wall motion. Transmitral Doppler flow pattern is Grade I-abnormal relaxation pattern. Mitral regurgitation is moderate. There is severe tricuspid regurgitation. There is severe pulmonary hypertension.
[2017-06-23] MEDS: Azithromycin 500 MG in Sodium Chloride 0.9% 250 ML IVPB SCH (20:25)
--- NOTE | 2017-06-23 23:49 | CON ---
DATE: CARDIOLOGY CONSULTATION REASON FOR CONSULTATION: Elevated troponin. HISTORY OF PRESENT ILLNESS: The patient is an 86-year-old female, who has a history of hypertension, history of early dementia, who was admitted because of cough, fever and vomiting. The patient was diagnosed with pneumonia and because of new EKG changes, cardiac enzymes were obtained and second troponin was slightly elevated at 1.08. The patient denies any chest pain and she is not aware of any history of heart attack in the past. No reported hypotension or ventricular arrhythmia on the monitor. SOCIAL HISTORY: Nonsmoker. She lives by herself. MEDICATIONS: Hydralazine 50 mg q. 8 hours, Aricept 20 mg once a day, IV Zithromax 500 mg daily, IV Rocephin 1 mg daily, Cozaar 50 mg daily, Ditropan 5 mg once a day, aspirin 81 mg once a day, K-Dur 20 mEq once day, Lasix 20 mg p.o. twice a day, Lipitor 20 mg once a day, Zaroxolyn 5 mg twice a day, Zebeta 5 mg once a day. REVIEW OF SYSTEMS: The patient did experience fever on admission as well as productive cough. She does report vomiting. At this time, she has no abdominal pain or vomiting. She does not have any diarrhea. No retrosternal chest pain. No dizziness. PHYSICAL EXAMINATION GENERAL: The patient is an elderly female who does not appeared to be in acute distress. VITAL SIGNS: Blood pressure , heart rate , temperature 97.6, respirations 20. HEENT: Normocephalic. CHEST: Bibasilar rhonchi. HEART: S1 and S2, regular. ABDOMEN: Soft. EXTREMITIES: No edema. LABORATORY DATA: CBC on admission white count 2.8, hemoglobin and hematocrit 13.1 and 38.5, platelet count 102,000. SMA-7; sodium 140, potassium 4.1, chloride 99, CO2 27, glucose 83, BUN 32, creatinine 1.3, proBNP is 12,500. Influenza A and B serology is negative. EKG on admission revealed sinus rhythm. There was marked sinus arrhythmia, left axis deviation and left bundle branch block and repeat EKG yesterday revealed same picture of sinus rhythm, left axis deviation and left bundle branch block. Echocardiographic study performed today revealed moderate concentric LVH with normal ejection fraction and normal segmental wall motion, moderate mitral insufficiency, severe tricuspid insufficiency and severe pulmonary hypertension. Chest x-ray revealed mild cardiomegaly and prominent bronchovascular markings. ASSESSMENT: 1. Bilateral pneumonia. 2. Severe pulmonary hypertension. 3. Moderate mitral insufficiency. 4. Consider myocardial infarction. The patient's baseline EKG is left bundle branch block, which has been there since 2016. 5. Chronic renal insufficiency. 6. Leukopenia and thrombocytopenia. RECOMMENDATIONS: Continue current hydralazine 50 mg q. 8 hours, continue IV Zithromax 500 mg daily, Rocephin at 1 g daily intravenously, the patient continue Cozaar 50 mg once a day, aspirin 81 mg once day, K-Dur 20 mEq once a day, Lasix 20 mg p.o. twice a day, Lipitor 20 mg once a day, Zaroxolyn 5 mg once a day, Zebeta 5 mg once a day. Conservative medical approach is justified unless the patient has chest pain, pleural CHF, hypertension or sustained ventricular arrhythmia. Nirav Shepherd MD
[2017-06-24] MEDS: metOLazone 5 MG TAB PO SCH ×2 (08:27→17:59)
[2017-06-24] MEDS: Potassium Chloride 20 mEq ER Tab PO SCH (08:28)
--- NOTE | 2017-06-24 15:05 | PN ---
DATE: SUBJECTIVE: The patient denies any retrosternal chest pain. She is experiencing productive cough. Denies any dizziness. PHYSICAL EXAMINATION: VITAL SIGNS: Blood pressure 188/66, heart rate 50, temperature 98.1, and respirations 20. HEENT: Normocephalic. CHEST: Bibasilar rhonchi. HEART: S1 and S2, regular. EXTREMITIES: No edema. LABORATORY DATA: Blood culture is negative 48 hours. ASSESSMENT: 1. Bilateral pneumonia. 2. Severe pulmonary hypertension. 3. Borderline troponin elevation. 4. Left bundle-branch block. 5. Leukopenia and thrombocytopenia. 6. Chronic renal insufficiency. RECOMMENDATIONS: I did review echocardiography study that was performed yesterday, which revealed moderate concentric LVH with normal ejection fraction and reduced compliance. Continue current hydralazine 50 mg every 8 hours. Continue IV Rocephin and IV Zithromax. Continue Cozaar 50 mg daily, aspirin 81 mg once a day, K-Dur 20 mEq once a day, and mg twice a day. Zebeta was discontinued because of sinus bradycardia. I will obtain 12-lead EKG today. Nirav Shepherd MD
[2017-06-24] MEDS: Azithromycin 500 MG in Sodium Chloride 0.9% 250 ML IVPB SCH (17:59)
--- NOTE | 2017-06-24 23:58 | PN ---
DAILY PROGRESS NOTE DATE: 06/24/2017 SUBJECTIVE: The patient is seen today on 06/24/2017. She is not in any cardiopulmonary distress. PHYSICAL EXAMINATION: VITAL SIGNS: Blood pressure of 142/67, temperature of 97.8, respiratory rate of 20, and pulse of 61. HEENT: Pupils equal, reactive to light. Normal-appearing mucosa of the conjunctivae, oropharynx and nasal membrane mucosa. NECK: Supple. No JVD. No carotid bruit. No lymph nodes. No thyromegaly. CHEST AND LUNGS: Bilateral symmetrical expansion. Good air exchange. No rales. No rhonchi. CARDIOVASCULAR SYSTEM: PMI not localized. S1 and S2. No additional sounds. ABDOMEN: Normoactive bowel sounds. No tenderness. No organomegaly. No masses. EXTREMITIES: No cyanosis, no clubbing, no edema. CENTRAL NERVOUS SYSTEM: Alert, awake, and oriented x2. Moves all extremities equally. ASSESSMENT: 1. Pneumonia. 2. Non-ST elevation myocardial infarction. 3. Hyperthyroidism. 4. Hypercalcemia. 5. Primary hyperparathyroidism. 6. History of seizure disorder. PLAN: Continue current medications and antibiotics. Follow Cardiology recommendations. Analilia Awad MD
--- NOTE | 2017-06-25 06:16 | CARD ---
APPROVED REPORT EKG Measurement Heart [id number] <Conclusion> Sinus rhythm with premature atrial complexes Ventricular pre-excitation, WPW pattern type B Abnormal ECG
[2017-06-25] MEDS: Potassium Chloride 20 mEq ER Tab PO SCH (10:19)
[2017-06-25] MEDS: metOLazone 5 MG TAB PO SCH ×2 (10:21→17:04)
[2017-06-25] MEDS ORDERED: Trimethobenzamide 200 mg/2 mL Inj IM ONE (13:06)
--- NOTE | 2017-06-25 15:40 | PN ---
DATE: SUBJECTIVE: The patient did report nausea and vomiting this morning and she received Zofran intravenously. She is comfortable at this time. No chest pain. She is experiencing cough. PHYSICAL EXAMINATION: VITAL SIGNS: Blood pressure of 156/55, heart rate of 65, temperature of 98.2, and respirations of 20. HEENT: Normocephalic. NECK: No JVD. CHEST: Bibasilar rhonchi. HEART: S1 and S2, regular. EXTREMITIES: No edema. DIAGNOSTIC DATA: Yesterday's EKG revealed sinus rhythm with AVC and ventricular preexcitation, however, this is most likely pseudo-preexcitation pattern with underlying left bundle-branch block. ASSESSMENT: 1. Pneumonia. 2. Status post myocardial infarction. 3. Severe pulmonary hypertension. 4. Chronic renal insufficiency. 5. Leukopenia and thrombocytopenia. RECOMMENDATIONS: Continue current hydralazine 50 mg every 8 hours. Continue IV Rocephin and IV Zithromax. Continue Cozaar 50 mg once a day, aspirin 81 mg once a day, K-Dur 20 mEq once a day, Lasix 20 mg p.o. twice a day, and Zaroxolyn 5 mg twice a day. Obtain BNP and CBC in a.m. Nirav Shepherd MD
[2017-06-25] MEDS: Azithromycin 500 MG in Sodium Chloride 0.9% 250 ML IVPB SCH (18:03)
[2017-06-26 06:04] LABS: HEMOGLOBIN 12.5 g/dL (12.0-16.0); MEAN CELL VOLUME 96.3 fl (81.0-99.0); MEAN CORPUSCULAR HEMOGLOBIN 32.7 pg (27.0-31.0); MEAN CORPUSCULAR HGB CONC 33.9 g/dL (33.0-37.0); RBC 3.83 Mil/uL (3.80-5.20); RED CELL DISTRIBUTION WIDTH 12.8 % (11.5-14.5); WHITE BLOOD COUNT 2.2 K/uL (4.8-10.8)
[2017-06-26 06:19] LABS: CALCIUM 8.1 mg/dL (8.4-10.2)
[2017-06-26] MEDS: Potassium Chloride 20 mEq ER Tab PO SCH (09:37)
[2017-06-26] MEDS: metOLazone 5 MG TAB PO SCH (09:40)
--- NOTE | 2017-06-26 11:59 | PN ---
DATE: SUBJECTIVE: The patient is experiencing cough, but no sputum production. No retrosternal chest pain. Nausea and vomiting has improved and she ate her breakfast today. PHYSICAL EXAMINATION: VITAL SIGNS: Blood pressure of 164/55, heart rate of 70, temperature of 98.1 and respirations of 17. HEENT: Normocephalic. CHEST: Bibasilar rhonchi. HEART: S1 and S2 regular. ABDOMEN: Soft. EXTREMITIES: No edema. LABORATORY DATA: Today's hemoglobin and hematocrit are 12.5 and 39.6. White count 2.2, platelet count 91,000. SMA-7; sodium 137, potassium 3.1, chloride 93, CO2 32, glucose 89, BUN 24, and creatinine 1.2. ASSESSMENT: 1. Consider non-ST elevation myocardial infarction. 2. Pneumonia. 3. Severe pulmonary hypertension. 4. Leukopenia and thrombocytopenia. 5. Hypokalemia. RECOMMENDATIONS: The patient was started on K-Dur 20 mEq oral daily. Continue hydralazine 50 mg every 8 hours. Continue IV Rocephin and IV Zithromax. Discontinue both Zaroxolyn and Lasix. Obtain BNP in a.m. The case was discussed with Dr. Awad this morning. Nirav Shepherd MD
[2017-06-26] MEDS ORDERED: Potassium Chloride 20 mEq ER Tab PO ONE (13:00)
[2017-06-26] MEDS: guaiFENesin 600 mg ER Tab PO SCH ×2 (13:56→21:17)
[2017-06-26 14:45] LABS: TROPONIN I 0.147 ng/mL (0.00-0.120)
--- NOTE | 2017-06-26 16:35 | US ---
HISTORY: vomiting COMPARISON: 01/22/2014 abdominal ultrasound 01/23/2014 CT of the abdomen TECHNIQUE: Sonographic evaluation of the abdomen. FINDINGS: LIVER: Measures 13.0 cm. Hepatopedal blood flow. Fatty infiltration manifest ultrasonographically as increased echogenicity of the liver parenchyma. No mass. No intrahepatic bile duct dilatation. GALLBLADDER: Unremarkable. No gallstones. COMMON BILE DUCT: Measures 2.1 mm. No stones. No dilatation. PANCREAS: Cyst/cystic mass in the pancreas 6 x 7 x 8 mm. This is in the body of the pancreas. RIGHT KIDNEY: Measures 4.3 x 8.7cm. Normal echogenicity. No calculus, mass, or hydronephrosis. Incidental finding(s): Cysts identified, subcentimeter in size. LEFT KIDNEY: Measures 3.8 x 8.1cm. Normal echogenicity. No calculus, mass, or hydronephrosis. Incidental finding(s): Eccentric cysts upper pole left kidney 1.2 x 1.6 x 2.7 cm additional smaller cysts identified. SPLEEN: Normal in size and contour. No mass. AORTA: No aneurysmal dilatation. IVC: Unremarkable. OTHER FINDINGS: None. IMPRESSION: No acute findings related to/accounting for the clinical presentation. Simple cyst in the body of the pancreas. The cysts was not seen on prior studies. On the prior CT 8 fatty infiltration of pancreas was noted. Elective followup recommended. Additional benign and/or incidental findings described above.
[2017-06-26] MEDS: Azithromycin 500 MG in Sodium Chloride 0.9% 250 ML IVPB SCH (18:07)
--- NOTE | 2017-06-26 21:48 | PN ---
DAILY PROGRESS NOTE DATE: 06/26/2017 SUBJECTIVE: The patient is seen today on 06/26/2017. She is not in any cardiopulmonary distress. The patient vomited last night few times. PHYSICAL EXAMINATION: VITAL SIGNS: Blood pressure 118/55, temperature 97.8, respiratory rate 20, and pulse 87. HEENT: Pupils equal and reactive to light. Normal-appearing mucosa of the conjunctivae, oropharynx, and nasal membrane mucosa. NECK: Supple. No JVD. No carotid bruit. No lymph nodes. No thyromegaly. CHEST AND LUNGS: Bilateral symmetrical expansion. Good air exchange. No rales. No rhonchi. CARDIOVASCULAR: PMI not localized. S1 and S2. No additional sounds. ABDOMEN: Normoactive bowel sounds. No tenderness. No organomegaly. No masses. EXTREMITIES: No cyanosis, no clubbing, and no edema. CENTRAL NERVOUS SYSTEM: Alert, awake, and oriented x2. Moves all extremities equally. ASSESSMENT: Pneumonia, non-ST elevation myocardial infarction, hypertension, hypercalcemia, and gouty arthritis. PLAN: Continue current medications. Check amylase and lipase and abdominal ultrasound. Discussed the patient's condition with her son who requested the patient to be full code, physical therapy. Analilia Awad MD
[2017-06-27] MEDS: Potassium Chloride 20 mEq ER Tab PO SCH (08:47)
[2017-06-27] MEDS: guaiFENesin 600 mg ER Tab PO SCH ×2 (08:48→21:36)
[2017-06-27 11:56] LABS: CALCIUM 8.4 mg/dL (8.4-10.2)
[2017-06-27 17:34] LABS: INR 1.2 (0.9-1.2); PARTIAL THROMBOPLASTIN TIME 49.7 Seconds (25.6-37.1); PROTHROMBIN TIME 12.9 Seconds (9.8-13.1)
--- NOTE | 2017-06-27 19:32 | PN ---
DATE: SUBJECTIVE: The patient denies any chest pain, abdominal pain and nausea has improved. She is still experiencing nonproductive cough. PHYSICAL EXAMINATION: VITAL SIGNS: Blood pressure of 149/69, heart rate of 76, temperature of 98.1, and respirations of 18. HEENT: Normocephalic. CHEST: Minimal basilar rhonchi. HEART: S1 and S2 regular. EXTREMITIES: No edema. LABORATORY DATA: SMA-7; sodium 136, potassium 4.2, chloride 91, CO2 of 33, glucose 172, BUN 28, and creatinine 1.3. Yesterday's troponin was 0.147. ProBNP is 2940. Abdominal ultrasound was performed yesterday no acute findings. Simple cyst pancreas. ASSESSMENT: 1. Pneumonia. 2. Consider non-ST elevation myocardial infarction. 3. Severe pulmonary hypertension. 4. Chronic renal insufficiency. 5. Leukopenia and thrombocytopenia. RECOMMENDATIONS: Continue hydralazine 50 mg every 8 hours. Continue IV Rocephin and IV Zithromax. Continue Cozaar 50 mg once a day, aspirin 81 mg once a day, subcutaneous heparin 5000 units every 12 hours, K-Dur 20 mEq orally daily, Keppra 500 mg twice a day, Lipitor 20 mg once a day, and Lasix 20 mg p.o. twice a day. Obtain PT, PTT, and d-dimer. Nirav Shepherd MD
[2017-06-27] MEDS: Azithromycin 500 MG in Sodium Chloride 0.9% 250 ML IVPB SCH (20:22)
--- NOTE | 2017-06-28 04:18 | PN ---
DATE: 06/27/2017 DAILY PROGRESS NOTE SUBJECTIVE: The patient is seen today, 06/27/2017. She is not in any cardiopulmonary distress. The patient has no vomiting today. PHYSICAL EXAMINATION: VITAL SIGNS: Blood pressure 147/64, temperature 98.7, respiratory rate 17, and pulse 78. HEENT: Pupils equal and reactive to light. Normal-appearing mucosa of the conjunctivae, oropharynx, and nasal membrane mucosa. NECK: Supple. No JVD. No carotid bruit. No lymph nodes. No thyromegaly. CHEST AND LUNGS: Bilateral symmetrical expansion. Good air exchange. No rales. No rhonchi. CARDIOVASCULAR: PMI not localized. S1 and S2. No additional sounds. ABDOMEN: Normoactive bowel sounds. No tenderness. No organomegaly. No masses. EXTREMITIES: No cyanosis, no clubbing, and no edema. CENTRAL NERVOUS SYSTEM: Alert, awake, and oriented x2. Moves all extremities equally. ASSESSMENT: Pneumonia, non-ST elevation myocardial infarction, hypertension, and hyperparathyroidism. PLAN: Continue current antibiotics and monitor electrolytes and Physical Therapy. Discussed with the patient, who wants to go home. [facility] MD
[2017-06-28] MEDS: Potassium Chloride 20 mEq ER Tab PO SCH (09:50)
[2017-06-28] MEDS: guaiFENesin 600 mg ER Tab PO SCH ×2 (09:51→21:16)
[2017-06-28] MEDS ORDERED: Trimethobenzamide 200 mg/2 mL Inj IM PRN (15:10)
--- NOTE | 2017-06-28 16:40 | PN ---
DATE: SUBJECTIVE: The patient is still experiencing nausea and vomiting. She denies any abdominal pain or chest pain. PHYSICAL EXAMINATION: VITAL SIGNS: Blood pressure 166/73, heart rate 76, temperature 98.1, and respirations 18. HEENT: Normocephalic. CHEST: Clear. HEART: S1 and S2 regular. ABDOMEN: Soft. EXTREMITIES: No edema. LABORATORY DATA: Amylase and lipase 2 days ago are within normal limits. ASSESSMENT: 1. Borderline troponin elevation. Consider non-ST elevation myocardial infarction. 2. Pneumonia. 3. Recurrent nausea and vomiting. 4. Chronic renal insufficiency. 5. Thrombocytopenia and leukopenia. RECOMMENDATIONS: Continue current hydralazine, IV Zithromax, and IV Rocephin. Discontinue aspirin. Continue subcutaneous heparin. Start Protonix at 40 mg intravenously daily. Start 200 mg IM every hours p.r.n. Nirav Shepherd MD
--- NOTE | 2017-06-28 20:43 | PN ---
DAILY PROGRESS NOTE DATE: 06/28/2017 SUBJECTIVE: The patient is seen today, 06/28/2017. She is not in any cardiopulmonary distress, but the patient still have nausea and vomited one time. PHYSICAL EXAMINATION: VITAL SIGNS: Blood pressure 146/69, temperature 98.4, respiratory rate 20, and pulse 74. HEENT: Pupils equal and reactive to light. Normal-appearing mucosa of the conjunctivae, oropharynx, and nasal membrane mucosa. NECK: Supple. No JVD. No carotid bruit. No lymph nodes. No thyromegaly. CHEST AND LUNGS: Bilateral symmetrical expansion. Good air exchange. No rales. No rhonchi. CARDIOVASCULAR: PMI not localized. S1 and S2. No additional sounds. ABDOMEN: Normoactive bowel sounds. No tenderness. No organomegaly. No masses. EXTREMITIES: No cyanosis, no clubbing, and no edema. CENTRAL NERVOUS SYSTEM: Alert, awake, and oriented x2. No neurological deficits could be appreciated. ASSESSMENT: Pneumonia, non-ST elevation myocardial infarction, and persistent nausea. DIFFERENTIAL DIAGNOSIS: Include could be macrolide-related side effect. PLAN: We will stop azithromycin. We will give Reglan added to the Zofran p.r.n. for nausea. Continue proton pump inhibitor. If the patient continue to have nausea, we will call GI for further workup. Analilia Awad MD
[2017-06-29] MEDS: guaiFENesin 600 mg ER Tab PO SCH ×2 (08:14→21:33)
[2017-06-29 12:56] LABS: HEMOGLOBIN 13.9 g/dL (12.0-16.0); MEAN CELL VOLUME 96.9 fl (81.0-99.0); MEAN CORPUSCULAR HEMOGLOBIN 32.5 pg (27.0-31.0); MEAN CORPUSCULAR HGB CONC 33.6 g/dL (33.0-37.0); RBC 4.28 Mil/uL (3.80-5.20); RED CELL DISTRIBUTION WIDTH 12.5 % (11.5-14.5); WHITE BLOOD COUNT 4.4 K/uL (4.8-10.8)
[2017-06-29 13:08] LABS: ALB/GLOB RATIO 1.2 (1.0-2.1); ALBUMIN 3.4 g/dL (3.5-5.0); CALCIUM 8.9 mg/dL (8.4-10.2)
--- NOTE | 2017-06-29 13:36 | CP.PCM.CON ---
History of Present Illness - History of Present Illness History of Present Illness: Consult requested by Dr Awad- This is a 86 y/o female with history of Dementia , anxiety, depression, HTN, lower extremity edema sent to ED by Dr. Awad for evaluation of cough/fever/vomiting noted today. She wsa found to have NSTEMI and Pneumonia. She was seen at bedside. She denies vomiting last night but states vomited this am. after breakfast and given zithromax tab. Patient denies any chest pain/abdominal pain/dysuria. Has h/o ovarian cyst removal in past otherwise denies any abdominal surgeries. Denies EGD/ colonoscopy before and neither did I find any in her chart. Denies rectal bleeding, hematemesis. Review of Systems - Review of Systems Review of Systems: 12 point ROS as per HPI Past Patient History - Infectious Disease Hx of Infectious Diseases: None - Tetanus Immunizations Tetanus Immunization: Unknown - Past Medical History & Family History Past Medical History?: Yes - Past Social History Smoking Status: Never Smoked - CARDIAC Hx Congestive Heart Failure: Yes Hx Hypercholesterolemia: Yes Hx Hypertension: Yes - PULMONARY Hx Asthma: Yes - NEUROLOGICAL Hx Seizures: Yes - HEENT Hx HEENT Problems: Yes Other/Comment: +eyeglasses - RENAL Hx Chronic Kidney Disease: Yes - ENDOCRINE/METABOLIC Hx Endocrine Disorders: No - HEMATOLOGICAL/ONCOLOGICAL Hx AIDS: No Hx Human Immunodeficiency Virus (HIV): No - INTEGUMENTARY Hx Dermatological Problems: No - MUSCULOSKELETAL/RHEUMATOLOGICAL Hx Arthritis: Yes Hx Falls: Yes Hx Osteoporosis: Yes - GASTROINTESTINAL Hx Gastrointestinal Disorders: No - GENITOURINARY/GYNECOLOGICAL Hx Sexually Transmitted Disorders: No - PSYCHIATRIC Hx Psychophysiologic Disorder: No Hx Substance Use: No - SURGICAL HISTORY Hx Appendectomy: Yes Hx Cholecystectomy: Yes - ANESTHESIA Hx Anesthesia: Yes Hx Anesthesia Reactions: No Hx Malignant Hyperthermia: No Has any member of the family had a problem w/ anesthesia?: No Meds Allergies/Adverse Reactions: Allergies Allergy/AdvReac Type Severity Reaction Status Date / Time No Known Allergies Allergy Verified 06/21/17 16:19 - Medications Medications: Current Medications Acetaminophen (Tylenol 325mg Tab) 650 mg PO Q6 PRN PRN Reason: Fever >100.4 F Last Admin: 06/22/17 15:40 Dose: 650 mg Atorvastatin Calcium (Lipitor) 20 mg PO DAILY [facility] Last Admin: 06/29/17 08:14 Dose: 20 mg Cinacalcet (Sensipar) 60 mg PO DAILY [facility] Last Admin: 06/29/17 08:15 Dose: 60 mg Donepezil HCl (Aricept) 5 mg PO HS [facility] Last Admin: 06/28/17 21:16 Dose: 5 mg Famotidine (Pepcid) 20 mg PO DAILY [facility] Last Admin: 06/29/17 08:14 Dose: 20 mg Ferrous Sulfate (Feosol) 325 mg PO BID [facility] Last Admin: 06/29/17 08:14 Dose: 325 mg Furosemide (Lasix) 20 mg PO BID [facility] Last Admin: 06/29/17 08:18 Dose: 20 mg Guaifenesin (Mucinex La) 600 mg PO Q12 [facility] Last Admin: 06/29/17 08:14 Dose: 600 mg Heparin Sodium (Porcine) (Heparin) 5,000 units SC Q12 [facility] PRN Reason: Protocol Last Admin: 06/29/17 08:15 Dose: 5,000 units Hydralazine HCl (Apresoline) 50 mg PO Q8H [facility] Last Admin: 06/29/17 06:06 Dose: 50 mg Ceftriaxone Sodium 1 gm/ (Sodium Chloride) 100 mls @ 100 mls/hr IVPB DAILY [facility] PRN Reason: Protocol Last Admin: 06/29/17 09:23 Dose: 100 mls/hr Levetiracetam (Keppra) 500 mg PO BID [facility] Last Admin: 06/29/17 08:22 Dose: 500 mg Losartan Potassium (Cozaar) 50 mg PO DAILY [facility] Last Admin: 06/29/17 08:14 Dose: 50 mg Metoclopramide HCl (Reglan) 5 mg IVP Q6 PRN PRN Reason: Nausea/Vomiting Last Admin: 06/28/17 17:20 Dose: 5 mg Ondansetron HCl (Zofran Odt) 4 mg PO Q8H PRN PRN Reason: Nausea/Vomiting Last Admin: 06/28/17 14:06 Dose: 4 mg Oxybutynin Chloride (Ditropan Tab) 5 mg PO DAILY [facility] Last Admin: 06/29/17 08:14 Dose: 5 mg Pantoprazole Sodium (Protonix Inj) 40 mg IVP DAILY [facility] Last Admin: 06/29/17 08:15 Dose: 40 mg Trimethobenzamide HCl (Tigan) 200 mg IM Q6 PRN PRN Reason: Nausea/Vomiting Physical Exam - Constitutional Appears: Well, Non-toxic, Toxic, No Acute Distress - Head Exam Head Exam: ATRAUMATIC, NORMAL INSPECTION, NORMOCEPHALIC - ENT Exam ENT Exam: Mucous Membranes Moist, Normal Exam - Neck Exam Neck exam: Positive for: Normal Inspection - Respiratory Exam Respiratory Exam: Rales, NORMAL BREATHING PATTERN - Cardiovascular Exam Cardiovascular Exam: REGULAR RHYTHM, RRR, +S1, +S2 - GI/Abdominal Exam GI & Abdominal Exam: Normal Bowel Sounds, Soft Additional comments: No guarding or rigidity - Neurological Exam Neurological exam: Alert - Psychiatric Exam Psychiatric exam: Normal Affect, Normal Mood - Skin Skin Exam: Intact, Warm Results - Vital Signs Recent Vital Signs: Last Vital Signs Temp 98.1 F 06/29/17 11:47 Pulse 79 06/29/17 11:47 Resp 18 06/29/17 11:47 BP 124/63 06/29/17 11:47 Pulse Ox 94 L 06/29/17 11:47 - Labs Result Diagrams: 06/29/17 11:48 06/29/17 11:48 Labs: Laboratory Results - last 24 hr 06/29/17 06/29/17 06/29/17 11:48 11:48 11:48 WBC 4.4 L D RBC 4.28 Hgb 13.9 Hct 41.5 MCV 96.9 MCH 32.5 H MCHC 33.6 RDW 12.5 Plt Count 142 Sodium 133 Potassium 3.9 Chloride 84 L Carbon Dioxide 38 H Anion Gap 15 BUN 28 H Creatinine 1.5 H Est GFR ( Amer) 40 Est GFR (Non-Af Amer) 33 Random Glucose 121 H Calcium 8.9 Total Bilirubin 0.7 AST 39 H ALT 42 Alkaline Phosphatase 72 Troponin I 0.0350 Total Protein 6.3 Albumin 3.4 L Globulin 2.9 Albumin/Globulin Ratio 1.2 Assessment & Plan - Assessment and Plan (Free Text) Assessment: 86 yr old F with multiple comorbidities admitted with NSTEMI and Pneumonia. GI consulted for one episode of vomiting this am after breakfast. No history of gastroparesis. Likely multi factorial due to infection and cardiac issues Plan: - Anti emetic as indicated - Low fat low fiber diet - PPI daily in am - No constipation - Management as per team for NSTEMI and PNA - No urgent GI intervention required - Thank you for letting us participate in the care of your patient
--- NOTE | 2017-06-29 14:24 | PN ---
DATE: SUBJECTIVE: The patient denies chest pain. Nausea has improved and no vomiting today. PHYSICAL EXAMINATION: VITAL SIGNS: Blood pressure 124/63, heart rate 79, temperature 98.1, and respirations 18. HEENT: Normocephalic. CHEST: Clear. HEART: S1 and S2 regular. ABDOMEN: Soft. EXTREMITIES: No edema. LABORATORY DATA: EKG reveals sinus rhythm, left bundle-branch block, which is an old finding. ASSESSMENT: 1. Consider myocardial infarction. 2. Abnormal EKG with evidence of left bundle-branch block. 3. Nausea and vomiting has improved. 4. Hypertension. RECOMMENDATIONS: Case was discussed with Dr. Awad and with SUPPORT GROUP MANAGER. Continue hydralazine at 50 mg every 8 hours. IV Rocephin was started at 1 g daily. Continue Lasix 20 mg p.o. twice a day, Protonix 40 mg intravenously once a day mg orally daily. The patient can undergo upper endoscopy from the cardiac point of view if needed. Nirav Shepherd MD
--- NOTE | 2017-06-29 23:07 | PN ---
DAILY PROGRESS NOTE DATE: 06/29/2017 SUBJECTIVE: The patient is seen today, 06/29/2017. She is not in any cardiopulmonary distress. OBJECTIVE: VITAL SIGNS: Blood pressure 124/63, temperature 98.6, respiratory rate 20, and pulse 79. HEENT: Pupils equal and reactive to light. Normal-appearing mucosa of the conjunctivae, oropharynx, and nasal membrane mucosa. NECK: Supple. No JVD. No carotid bruit. No lymph node. No thyromegaly. CHEST AND LUNGS: Bilateral symmetrical expansion. Good air exchange. No rales. No rhonchi. CARDIOVASCULAR: PMI not localized. S1 and S2. No additional sounds. ABDOMEN: Normoactive bowel sounds. No tenderness. No organomegaly. No masses. EXTREMITIES: No cyanosis. No clubbing. No edema. CENTRAL NERVOUS SYSTEM: Alert, awake, and oriented x2. No neurological deficit could be appreciated. ASSESSMENT: Hypertension, status post [id number] myocardial infarction, pneumonia, and primary hyperparathyroidism with hypercalcemia. PLAN: Continue antiemetics and prokinetics as well as GI consult for persistent nausea. Physical therapy. Analilia Awad MD
[2017-06-30] MEDS: guaiFENesin 600 mg ER Tab PO SCH (08:16)
--- NOTE | 2017-06-30 11:23 | CP.PCM.PCO ---
Assessment/Plan - Assessment/Plan Assessment (Free Text): Patient seen and examined this morning Awake alert oriented to person place, uzbek speaking Patient denies nausea or vomiting overnight. GI following patient with recommendations for reglan rx. Patient ambulating with cane, denies dizziniess or lightheadness Plan discussed with Dr Awad, plan for discharge this afternoon to home on aspirin and reglan Prescriptions provided. CM to follow for transportation arrangements. - Problems Patient Problems: Problem List (Active/Current) Problem Status Onset Code Dehydration Acute E86.0 Pneumonia Acute J18.9 Vomiting Acute R11.10
--- NOTE | 2017-06-30 12:43 | PN ---
DATE: SUBJECTIVE: The patient denies any chest pain or abdominal pain and denied any nausea or vomiting. PHYSICAL EXAMINATION: VITAL SIGNS: Blood pressure 162/65, heart rate 80, temperature 97.7, and respirations 20. HEENT: Normocephalic. CHEST: Clear. HEART: S1 and S2 regular. EXTREMITIES: No edema. ASSESSMENT: 1. Pneumonia. 2. Mild myocardial infarction. 3. Pulmonary hypertension. 4. Improved nausea and vomiting. RECOMMENDATIONS: Continue current IV Rocephin at 1 g daily, Cozaar 50 mg once a day, heparin 5000 units subcutaneous twice a day, Keppra 500 mg twice a day, Lasix 20 mg once a day, Lipitor 20 mg once a day, and IM Tigan at 200 mg twice a day. Resume aspirin 81 mg once a day. Nirav Shepherd MD
--- NOTE | 2017-06-30 18:15 | CARD ---
APPROVED REPORT EKG Measurement Heart [id number] MD [id number] <Conclusion> Sinus rhythm with premature atrial complexes Left axis deviation Left bundle branch block Abnormal ECG
--- NOTE | 2017-06-30 22:46 | PN ---
DAILY PROGRESS NOTE DATE: 06/30/2017 SUBJECTIVE: The patient is seen today 06/30/2017. She still has cough with nausea and she vomited during this examination. OBJECTIVE: VITAL SIGNS: Blood pressure 136/70, temperature 98.2, respiratory rate 20, and pulse 71. HEENT: Pupils equal and reactive to light. Normal-appearing mucosa of the conjunctivae, oropharynx, and nasal membrane mucosa. NECK: Supple. No JVD. No carotid bruit. No lymph node. No thyromegaly. CHEST AND LUNGS: Bilateral symmetrical expansion. Good air exchange. No rales. Few scattered rhonchi. CARDIOVASCULAR: PMI not localized. S1 and S2. No additional sounds. ABDOMEN: Normoactive bowel sounds. No tenderness. No organomegaly. No masses. EXTREMITIES: No cyanosis. No clubbing. No edema. CENTRAL NERVOUS SYSTEM: Alert, awake, and oriented x2 and no neurological deficit could be appreciated. ASSESSMENT: Pneumonia, hyperactive airways disease, [id number] myocardial infarction, hypertension, and osteoarthritis. PLAN: We will start the patient on inhaled steroids as well as continue physical therapy and plan to discharge to rehabilitation if the patient qualifies as per physical therapy recommendations. Analilia Awad MD
[2017-07-01] MEDS: Budesonide 0.25 mg/2 ml Inhal Susp UD INH SCH ×2 (07:31→19:02)
[2017-07-01] MEDS: guaiFENesin 600 mg ER Tab PO SCH ×2 (09:24→22:00)
--- NOTE | 2017-07-01 15:09 | PN ---
DATE: SUBJECTIVE: The patient is experiencing nausea and vomiting. She denies any retrosternal chest pain. PHYSICAL EXAMINATION: VITAL SIGNS: Blood pressure , heart rate 77, temperature 97.9, and respirations 16. HEENT: Normocephalic. CHEST: Clear. HEART: S1 and S2 regular. ABDOMEN: Soft. EXTREMITIES: No edema. ASSESSMENT: 1. Recurrent nausea and vomiting. 2. Borderline troponin elevation, consider myocardial infarction. 3. Chronic renal insufficiency. 4. Abnormal EKG with evidence of left bundle-branch block. 5. Systemic hypertension. 6. Severe pulmonary hypertension. 7. Diastolic left ventricular dysfunction. RECOMMENDATIONS: Discontinue aspirin. Continue IV Rocephin 1 g daily, continue Cozaar 50 mg once a day, subcutaneous heparin 5000 units twice a day, Lasix 20 mg p.o. twice a day, Tigan 200 mg IM every 6 hours, and Zofran 4 mg p.o. every 8 hours p.r.n. If upper endoscopy is indicated, the patient can undergo the procedure from the cardiac point of view. Nirav Shepherd MD
--- NOTE | 2017-07-01 21:03 | PN ---
DAILY PROGRESS NOTE DATE: 07/01/2017 SUBJECTIVE: The patient is seen today 07/01/2017. She still has a cough and nausea and vomited one time today. OBJECTIVE: VITAL SIGNS: Blood pressure 136/65, temperature 98.3, respiratory rate 18, and pulse 81. HEENT: Pupils equal and reactive to light. Normal-appearing mucosa of the conjunctivae, oropharynx, and nasal membrane mucosa. NECK: Supple. No JVD. No carotid bruit. No lymph node. No thyromegaly. CHEST AND LUNGS: Bilateral symmetrical expansion. Good air exchange. There is few bilateral basilar rales. CARDIOVASCULAR: PMI not localized, S1 and S2. No additional sounds. ABDOMEN: Normoactive bowel sounds. No tenderness. No organomegaly. No masses. EXTREMITIES: No cyanosis. No clubbing. No edema. CENTRAL NERVOUS SYSTEM: Alert, awake, and oriented x2. No neurological deficit could be appreciated. ASSESSMENT: Pneumonia, [id number] myocardial infarction, hypertension, osteoarthritis, and persistent nausea and vomiting. PLAN: Continue the current medications and follow GI consult recommendations. We will also continue the inhaled steroids. Analilia Awad MD
[2017-07-02] MEDS: Budesonide 0.25 mg/2 ml Inhal Susp UD INH SCH ×2 (07:22→19:00)
--- NOTE | 2017-07-02 07:48 | CP.PCM.PN ---
Subjective - Date & Time of Evaluation Date of Evaluation: 07/02/17 Time of Evaluation: 07:48 - Subjective Subjective: doing well this morning stable no complaints hd stable nad Objective - Vital Signs/Intake and Output Vital Signs (last 24 hours): Temp Pulse Resp BP Pulse Ox 97.9 F 88 18 119/67 95 07/02/17 05:00 07/02/17 07:00 07/02/17 05:00 07/02/17 07:00 07/02/17 05:00 Constitutional- cooperative, awake, alert. Head- NCAT, PERRL Eye- PERRL, normal accommodation ENT- normal exam, MMM. Neck- normal inspection, supple, no JVD Respiratory- CTAB, no wheezes rales rhonchi Cardiovascular- RRR, +S1, +S2 no MRG GI/Abdominal- normal bowel sounds, soft Skin- warm, dry Extremities Exam- normal capillary refill, normal inspection Neurological Exam- alert, oriented Psych- normal mood, normal affect - Medications Medications: Current Medications Acetaminophen (Tylenol 325mg Tab) 650 mg PO Q6 PRN PRN Reason: Fever >100.4 F Last Admin: 06/22/17 15:40 Dose: 650 mg Atorvastatin Calcium (Lipitor) 20 mg PO DAILY [facility] Last Admin: 07/01/17 09:22 Dose: 20 mg Budesonide (Pulmicort Respules) 0.25 mg INH RBID [facility] Last Admin: 07/02/17 07:22 Dose: 0.25 mg Cinacalcet (Sensipar) 60 mg PO DAILY [facility] Last Admin: 07/01/17 09:22 Dose: 60 mg Donepezil HCl (Aricept) 5 mg PO HS [facility] Last Admin: 07/01/17 22:00 Dose: 5 mg Famotidine (Pepcid) 20 mg PO DAILY [facility] Last Admin: 07/01/17 09:22 Dose: 20 mg Ferrous Sulfate (Feosol) 325 mg PO BID [facility] Last Admin: 07/01/17 16:54 Dose: 325 mg Furosemide (Lasix) 20 mg PO BID [facility] Last Admin: 07/01/17 16:56 Dose: 20 mg Guaifenesin (Mucinex La) 600 mg PO Q12 [facility] Last Admin: 07/01/17 22:00 Dose: 600 mg Heparin Sodium (Porcine) (Heparin) 5,000 units SC Q12 [facility] PRN Reason: Protocol Last Admin: 07/01/17 22:00 Dose: 5,000 units Hydralazine HCl (Apresoline) 50 mg PO Q8H [facility] Last Admin: 07/02/17 07:00 Dose: 50 mg Ceftriaxone Sodium 1 gm/ (Sodium Chloride) 100 mls @ 100 mls/hr IVPB DAILY [facility] PRN Reason: Protocol Last Admin: 07/01/17 09:24 Dose: 100 mls/hr Levetiracetam (Keppra) 500 mg PO BID [facility] Last Admin: 07/01/17 16:55 Dose: 500 mg Losartan Potassium (Cozaar) 50 mg PO DAILY [facility] Last Admin: 07/01/17 09:23 Dose: 50 mg Metoclopramide HCl (Reglan) 5 mg IVP Q6 PRN PRN Reason: Nausea/Vomiting Last Admin: 07/01/17 10:45 Dose: 5 mg Ondansetron HCl (Zofran Odt) 4 mg PO Q8H PRN PRN Reason: Nausea/Vomiting Last Admin: 06/28/17 14:06 Dose: 4 mg Oxybutynin Chloride (Ditropan Tab) 5 mg PO DAILY [facility] Last Admin: 07/01/17 09:23 Dose: 5 mg Pantoprazole Sodium (Protonix Inj) 40 mg IVP DAILY [facility] Last Admin: 07/01/17 09:22 Dose: 40 mg Trimethobenzamide HCl (Tigan) 200 mg IM Q6 PRN PRN Reason: Nausea/Vomiting - Labs Labs: 06/29/17 11:48 06/29/17 11:48 PT 12.9 Seconds (9.8-13.1) 06/27/17 17:00 INR 1.2 (0.9-1.2) 06/27/17 17:00 APTT 49.7 Seconds (25.6-37.1) H 06/27/17 17:00 Assessment and Plan - Assessment and Plan (Free Text) Plan: 86 y/o female with history of Dementia, anxiety, depression, HTN, lower extremity edema sent to ED by Dr. Awad for evaluation of cough/fever/vomiting noted today. She wsa found to have NSTEMI and Pneumonia. She was seen at bedside. She denies vomiting last night but states vomited this am. after breakfast and given zithromax tab. Pneumonia NSTEMI Dementia HTN CKD HLD - cont abx for pna, ceftriaxone - NSTEMI stable - resume other home meds - stable for d/c tomorrow to [facility]
[2017-07-02] MEDS: guaiFENesin 600 mg ER Tab PO SCH ×2 (09:37→22:17)
[2017-07-02 16:46] LABS: HEMOGLOBIN 13.5 g/dL (12.0-16.0); MEAN CELL VOLUME 95.6 fl (81.0-99.0); MEAN CORPUSCULAR HEMOGLOBIN 32.2 pg (27.0-31.0); MEAN CORPUSCULAR HGB CONC 33.7 g/dL (33.0-37.0); RBC 4.18 Mil/uL (3.80-5.20); RED CELL DISTRIBUTION WIDTH 12.2 % (11.5-14.5); WHITE BLOOD COUNT 4.3 K/uL (4.8-10.8)
[2017-07-02 16:50] LABS: CALCIUM 8.7 mg/dL (8.4-10.2)
--- NOTE | 2017-07-02 20:06 | PN ---
DATE: SUBJECTIVE: The patient is still experiencing nausea and vomiting. No retrosternal chest pain. One set of troponin done on was negative. PHYSICAL EXAMINATION: VITAL SIGNS: Blood pressure 144/80, heart rate 81, temperature 97.9, and respirations 18. HEENT: Normocephalic. CHEST: Clear. HEART: S1 and S2 regular. ABDOMEN: Soft. EXTREMITIES: Trace leg edema. ASSESSMENT: 1. Borderline troponin elevation, consider myocardial infarction. 2. Left bundle-branch block. 3. Persistent nausea and vomiting for the past days. 4. Severe pulmonary hypertension. 5. Chronic renal insufficiency. 6. Improved thrombocytopenia. RECOMMENDATIONS: Continue hydralazine 50 mg every 8 hours, continue IV Rocephin 1 g daily, continue Cozaar 50 mg once a day, subcutaneous heparin 5000 units every 8 hours, and Lipitor 20 mg once a day. Obtain BMP, amylase and lipase level as well as EKG today. Nirav Shepherd MD
[2017-07-03 05:28] LABS: HEMOGLOBIN 12.9 g/dL (12.0-16.0); MEAN CELL VOLUME 96.3 fl (81.0-99.0); MEAN CORPUSCULAR HEMOGLOBIN 32.4 pg (27.0-31.0); MEAN CORPUSCULAR HGB CONC 33.6 g/dL (33.0-37.0); RBC 3.98 Mil/uL (3.80-5.20); RED CELL DISTRIBUTION WIDTH 12.1 % (11.5-14.5); WHITE BLOOD COUNT 4.3 K/uL (4.8-10.8)
[2017-07-03 05:39] LABS: CALCIUM 8.5 mg/dL (8.4-10.2)
[2017-07-03] MEDS: Budesonide 0.25 mg/2 ml Inhal Susp UD INH SCH (07:37)
[2017-07-03] MEDS: guaiFENesin 600 mg ER Tab PO SCH (09:19)
--- NOTE | 2017-07-03 13:50 | CP.PCM.DIS ---
Provider - Provider Date of Admission: 06/21/17 19:29 Attending physician: Analilia Awad MD Time Spent in preparation of Discharge (in minutes): 30 Diagnosis - Discharge Diagnosis (1) CHF exacerbation Status: Acute (2) Dementia Status: Acute Hospital Course - Lab Results Lab Results: Micro Results 06/21/17 17:25 Blood Blood Culture - Final NO GROWTH AFTER 5 DAYS 06/21/17 17:25 Blood Gram Stain - Final TEST NOT PERFORMED 06/21/17 20:30 Urine,Clean Catch Urine Culture - Final No Growth (<1,000 CFU/ML) Most Recent Lab Values WBC 4.3 K/uL (4.8-10.8) L 07/03/17 04:15 RBC 3.98 Mil/uL (3.80-5.20) 07/03/17 04:15 Hgb 12.9 g/dL (12.0-16.0) 07/03/17 04:15 Hct 38.4 % (34.0-47.0) 07/03/17 04:15 MCV 96.3 fl (81.0-99.0) 07/03/17 04:15 MCH 32.4 pg (27.0-31.0) H 07/03/17 04:15 MCHC 33.6 g/dL (33.0-37.0) 07/03/17 04:15 RDW 12.1 % (11.5-14.5) 07/03/17 04:15 Plt Count 147 K/uL (130-400) 07/03/17 04:15 MPV 8.7 fl (7.2-11.7) 06/21/17 17:35 Neut % (Auto) 64.7 % (50.0-75.0) 06/21/17 17:35 Lymph % (Auto) 15.3 % (20.0-40.0) L 06/21/17 17:35 Sandoval % (Auto) 18.5 % (0.0-10.0) H 06/21/17 17:35 Eos % (Auto) 0.6 % (0.0-4.0) 06/21/17 17:35 Baso % (Auto) 0.9 % (0.0-2.0) 06/21/17 17:35 Neut # (Auto) 1.8 K/uL (1.8-7.0) 06/21/17 17:35 Lymph # (Auto) 0.4 K/uL (1.0-4.3) L 06/21/17 17:35 Sandoval # (Auto) 0.5 K/uL (0.0-0.8) 06/21/17 17:35 Eos # (Auto) 0.0 K/uL (0.0-0.7) 06/21/17 17:35 Baso # (Auto) 0.0 K/uL (0.0-0.2) 06/21/17 17:35 PT 12.9 Seconds (9.8-13.1) 06/27/17 17:00 INR 1.2 (0.9-1.2) 06/27/17 17:00 APTT 49.7 Seconds (25.6-37.1) H 06/27/17 17:00 D-Dimer, Quantitative 1080 ng/mlDDU (0-230) H 06/27/17 17:00 pO2 24 mm/Hg (30-55) L 06/21/17 17:06 VBG pH 7.48 (7.32-7.43) H 06/21/17 17:06 VBG pCO2 40 mmHg (40-60) 06/21/17 17:06 VBG HCO3 28.3 mmol/L 06/21/17 17:06 VBG Total CO2 31.0 mmol/L (22-28) H 06/21/17 17:06 VBG O2 Sat (Calc) 54.2 % (40-65) 06/21/17 17:06 VBG Base Excess 5.8 mmol/L (0.0-2.0) H 06/21/17 17:06 VBG Potassium 4.2 mmol/L (3.6-5.2) 06/21/17 17:06 Sodium 136.0 mmol/L (132-148) 06/21/17 17:06 Chloride 102.0 mmol/L (98-107) 06/21/17 17:06 Glucose 87 mg/dL (65-105) 06/21/17 17:06 Lactate 1.2 mmol/L (0.7-2.1) 06/21/17 17:06 FiO2 21.0 % 06/21/17 17:06 Sodium 129 mmol/l (132-148) L 07/03/17 04:15 Potassium 3.8 MMOL/L (3.6-5.0) 07/03/17 04:15 Chloride 84 mmol/L (98-107) L 07/03/17 04:15 Carbon Dioxide 34 mmol/L (22-30) H 07/03/17 04:15 Anion Gap 15 (10-20) 07/03/17 04:15 BUN 44 mg/dl (7-17) H 07/03/17 04:15 Creatinine 1.5 mg/dl (0.7-1.2) H 07/03/17 04:15 Est GFR ( Amer) 40 07/03/17 04:15 Est GFR (Non-Af Amer) 33 07/03/17 04:15 POC Glucose (mg/dL) 225 mg/dL (65-110) H 06/26/17 11:02 Random Glucose 104 mg/dL (65-105) 07/03/17 04:15 Calcium 8.5 mg/dL (8.4-10.2) 07/03/17 04:15 Magnesium 1.3 MG/DL (1.6-2.3) L 06/21/17 17:35 Total Bilirubin 0.7 mg/dl (0.2-1.3) 06/29/17 11:48 AST 39 U/L (14-36) H 06/29/17 11:48 ALT 42 U/L (9-52) 06/29/17 11:48 Alkaline Phosphatase 72 U/L (38-126) 06/29/17 11:48 Troponin I 0.0350 ng/mL (0.00-0.120) 06/29/17 11:48 NT-Pro-B Natriuret Pep 2940 pg/ml (0-900) H 06/27/17 08:34 Total Protein 6.3 G/DL (6.3-8.2) 06/29/17 11:48 Albumin 3.4 g/dL (3.5-5.0) L 06/29/17 11:48 Globulin 2.9 gm/dL (2.2-3.9) 06/29/17 11:48 Albumin/Globulin Ratio 1.2 (1.0-2.1) 06/29/17 11:48 Amylase 56 U/L (30-110) 07/02/17 16:25 Lipase 124 U/L (23-300) 07/02/17 16:25 Venous Blood Potassium 4.2 mmol/L (3.6-5.2) 06/21/17 17:06 Urine Color Yellow (YELLOW) 06/21/17 20:30 Urine Clarity Slighty-cloudy (Clear) 06/21/17 20:30 Urine pH 6.0 (5.0-8.0) 06/21/17 20:30 Ur Specific [place] 1.014 (1.003-1.030) 06/21/17 20:30 Urine Protein 100 mg/dL (NEGATIVE) 06/21/17 20:30 Urine Glucose (UA) Neg mg/dL (Normal) 06/21/17 20:30 Urine Ketones Trace mg/dL (NEGATIVE) 06/21/17 20:30 Urine Blood Negative (NEGATIVE) 06/21/17 20:30 Urine Nitrate Negative (NEGATIVE) 06/21/17 20:30 Urine Bilirubin Negative (NEGATIVE) 06/21/17 20:30 Urine Urobilinogen 0.2-1.0 mg/dL (0.2-1.0) 06/21/17 20:30 Ur Leukocyte Esterase Neg Dany/uL (Negative) 06/21/17 20:30 Urine RBC (Auto) 3 /hpf (0-3) 06/21/17 20:30 Urine Microscopic WBC 1 /hpf (0-5) 06/21/17 20:30 Ur Squamous Epith Cells 5 /hpf (0-5) 06/21/17 20:30 Urine Bacteria Rare (<OCC) 06/21/17 20:30 Influenza Typ A,B (EIA) Negative for flu a/b (NEGATIVE) 06/21/17 17:35 - Hospital Course Hospital Course: 86 y/o female with history of Dementia, anxiety, depression, HTN, lower extremity edema sent to ED by Dr. Awad for evaluation of cough/fever/vomiting noted today. She wsa found to have NSTEMI and Pneumonia. Patient evaluated by GI, pneumonia resolved, NSTEMI also stable. Patient and patient family insist on being discharged home, refuses rehab. Stable for d/c home at this time. Follow up with PCP in one week. Discharge Exam - Head Exam Additional comments: General: awake, alert HEENT: NCAT, PERRL, EOMI HEART: RRR, S1, S2 no MRG LUNG: CTAB, no WRR ABD: soft, NT, ND, no mass, no HSM EXT: warm, well perfused NEURO: awake, alert SKIN: warm, dry PSYCH: normal mood, normal affect Discharge Plan - Discharge Medications Prescriptions: Aspirin [Adult Low Dose Aspirin EC] 81 mg PO DAILY #30 tablet. Metoclopramide HCl [Reglan] 5 mg PO TID #30 tablet - Follow Up Plan Condition: FAIR Disposition: HOME/ ROUTINE Instructions: Heart Attack (DC), Pneumonia, Adult (DC) Additional Instructions: follow up with pmd on monday07/10/17 at 1:45pm Referrals: Daniel Desouza MD [Medical Doctor] - Analilia Awad MD [Family Provider] - Nirav Shepherd MD [Staff Provider] -
[2017-07-03 15:50] VITALS: BP 105/61; RESP 210; TEMP 97.5; O2SAT 96
[2017-07-03 16:01] VITALS: PULSE 86
--- NOTE | 2017-07-04 12:46 | PQF GENQUE ---
This form is a permanent part of the medical record DR. IRVIN VELAZQUEZ: (1) D/C SUMMARY STATES CHF EXACERBATION ACUTE. COULD YOU PLEASE CONFIRM THE TYPE OF CHF. (2) PATIENT ALSO HAS CHRONIC KINDNEY DISEASE. COULD YOU PLEASE CLARIFY THE STAGE OF THE CKD IF KNOWN. Clarification of your documentation is requested to better reflect the severity of illness and intensity of treatment of your patient. Indicators present [] Specify: [] [] Specify: [] [] Specify: [] [] Specify: [] Location in the medical record that reflects the above clinical findings: [] Treatment Provided: [] PHYSICIAN'S RESPONSE Based on your medical judgment of the clinical indicators outlined above please clarify the following: [] Practitioner response [] If unable to determine, please check the box, sign and date. Present On Admission (POA) Indicator: [] Present at the time of admission [] Not present at the time of admission [] Clinically Undetermined In responding to this query, please exercise your independent professional judgment. The fact that a question is asked does not imply that any particular answer is desired or expected. Thank you for your clarification on this documentation. 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
== END 2017-07-03 19:01 | disposition home health service (06) | DRG 280 ==
LOC: H.ER 16:14 → H.ERHOLD 19:29 → H.TEL 22:44
PROVIDERS: ADMIT Internal Medicine; ATTEND Internal Medicine
PROC: 3E0F7GC Introduction of Other Therapeutic Substance into Respiratory Tract, Via Natural or Artificial Opening (ICD-10-PCS; principal; 2017-07-01)
DX: I21.4 Non-ST elevation (NSTEMI) myocardial infarction (principal); J18.9 Pneumonia, unspecified organism; I13.0 Hypertensive heart and chronic kidney disease with heart failure and stage 1 through stage 4 chronic kidney disease, or unspecified chronic kidney disease; B34.9 Viral infection, unspecified; D69.6 Thrombocytopenia, unspecified; D72.819 Decreased white blood cell count, unspecified; E05.90 Thyrotoxicosis, unspecified without thyrotoxic crisis or storm; E21.0 Primary hyperparathyroidism; E78.00 Pure hypercholesterolemia, unspecified; E78.5 Hyperlipidemia, unspecified; E86.0 Dehydration; E87.6 Hypokalemia; F03.90 Unspecified dementia, unspecified severity, without behavioral disturbance, psychotic disturbance, mood disturbance, and anxiety; G40.909 Epilepsy, unspecified, not intractable, without status epilepticus; I27.20 Pulmonary hypertension, unspecified; I34.0 Nonrheumatic mitral (valve) insufficiency; I44.7 Left bundle-branch block, unspecified; I50.9 Heart failure, unspecified; J45.909 Unspecified asthma, uncomplicated; M10.9 Gout, unspecified; M19.90 Unspecified osteoarthritis, unspecified site; M81.0 Age-related osteoporosis without current pathological fracture; N18.9 Chronic kidney disease, unspecified; Z79.82 Long term (current) use of aspirin; Z90.49 Acquired absence of other specified parts of digestive tract; F32.9 Major depressive disorder, single episode, unspecified; F41.9 Anxiety disorder, unspecified; Z79.899 Other long term (current) drug therapy